=== PATIENT | female | born 1955 | race American Indian/Alaskan Native ===

== ENCOUNTER 2019-02-04 15:31 | Inpatient (IN) | payer SELFPAY ==
[2019-02-04] MEDS ORDERED: NACL 0.9% 500 ML 500 ML IV ONE (16:00)
[2019-02-04 16:12] LABS: Hematocrit 36.6 % (30.3-42.9); Hemoglobin 12.8 gm/dl (10.1-14.3); Mean Corpuscular HGB Conc 35 % (30-34); Mean Corpuscular Volume 98 fl (79-97); Platelet Count 141 K/mm3 (140-440); Red Blood Count 3.74 M/mm3 (3.65-5.03); Red Cell Distribution Width 13.6 % (13.2-15.2)
[2019-02-04] MEDS ORDERED: TYLENOL PO ONE (16:12)
[2019-02-04] MEDS ORDERED: NACL 0.9% 1000 ML 1,000 ML IV ONE (16:16)
--- NOTE | 2019-02-04 16:20 | Emergency Department Report ---
ED Shortness of Breath HPI - General Chief Complaint: Dyspnea/Respdistress Stated Complaint: DIZZINESS Time Seen by Provider: 02/04/19 16:11 Source: patient, EMS Mode of arrival: Stretcher Limitations: No Limitations - History of Present Illness Initial Comments: Patient is 64 years old female with history of hypertension. Patient presented to the ER complaining of shortness of breath, cough productive with greenish sputum associated with fever and chills for the last 7 days. Patient found to have a temperature of 101.4 tachycardic at 125 and oxygen saturation of 93% on room air. Sepsis protocol initiated. Patient denied any chest pain, nausea or vomiting. Patient stated that she recently came from [place] for vacation. MD Complaint: shortness of breath, cough -: week(s) (1) - Related Data Allergies Allergy/AdvReac Type Severity Reaction Status Date / Time No Known Allergies Allergy Unverified 02/04/19 15:59 ED Review of Systems ROS: Stated complaint: DIZZINESS Other details as noted in HPI Comment: All other systems reviewed and negative Constitutional: chills, fever, weakness Respiratory: cough, shortness of breath Cardiovascular: palpitations Gastrointestinal: denies: abdominal pain, nausea, vomiting, diarrhea, constipation, hematemesis, melena, hematochezia Neurological: weakness ED Past Medical Hx - Past Medical History Previous Medical History?: Yes Hx Hypertension: Yes - Surgical History Past Surgical History?: No - Social History Smoking Status: Current Every Day Smoker Substance Use Type: Alcohol ED Physical Exam - General Limitations: No Limitations General appearance: alert, in distress (moderate respiratory distress) - Head Head exam: Present: atraumatic, normocephalic, normal inspection - Eye Eye exam: Present: normal appearance - ENT ENT exam: Present: mucous membranes dry - Neck Neck exam: Present: normal inspection, full ROM. Absent: tenderness, meningismus, lymphadenopathy, thyromegaly - Respiratory Respiratory exam: Present: respiratory distress, rales. Absent: wheezes, rhonchi, stridor, chest wall tenderness, accessory muscle use, decreased breath sounds, prolonged expiratory - Cardiovascular Cardiovascular Exam: Present: tachycardia - GI/Abdominal GI/Abdominal exam: Present: soft, normal bowel sounds. Absent: distended, tenderness, guarding, rebound, rigid, organomegaly, mass, bruit, pulsatile mass, hernia - Extremities Exam Extremities exam: Present: normal inspection, full ROM, normal capillary refill - Back Exam Back exam: Present: normal inspection, full ROM. Absent: tenderness, CVA tenderness (R), CVA tenderness (L), muscle spasm, paraspinal tenderness, vertebral tenderness - Neurological Exam Neurological exam: Present: alert, oriented X3, CN II-XII intact, normal gait, reflexes normal - Skin Skin exam: Present: warm, intact, normal color ED Course Vital Signs 02/04/19 02/04/19 15:54 15:57 Temperature 101.4 F H Pulse Rate 125 H Respiratory 35 H 35 H Rate Blood Pressure 147/84 Blood Pressure 147/84 [Left] O2 Sat by Pulse 93 93 Oximetry ED Medical Decision Making - Lab Data Result diagrams: 02/04/19 16:03 02/04/19 16:03 - EKG Data -: EKG Interpreted by Me EKG shows normal: sinus rhythm Rate: tachycardia - EKG Data Interpretation: no acute changes - Radiology Data Radiology results: image reviewed interpreted by me: Chest x-ray showed right lower lobe infiltrate. - Medical Decision Making Patient is 64 years old female with history of hypertension. Patient presented to the ER complaining of shortness of breath, cough productive with greenish sputum associated with fever and chills for the last 7 days. Patient found to have a temperature of 101.4 tachycardic at 125 and oxygen saturation of 93% on room air. Sepsis protocol initiated. Patient denied any chest pain, nausea or vomiting. Patient stated that she recently came from [place] for vacation. Patient found to have a right lower lobe infiltrate which is most likely the cause for her sepsis. Lactic acid is 5.9. Patient received 2 L of normal saline. Patient's sodium is 122. Potassium is 2.1 patient received potassium and chloride. Patient received Zosyn for pneumonia. I discussed the patient is Dr. Gannon, he'll return the patient to medical service. Critical Care Time: Yes Critical care time in (mins) excluding proc time.: 30 Critical care attestation.: If time is entered above; I have spent that time in minutes in the direct care of this critically ill patient, excluding procedure time. ED Disposition Clinical Impression: Sepsis, Pneumonia, Acute hyponatremia, Acute hypokalemia Disposition: OP ADMIT IP TO THIS HOSP Is pt being admited?: Yes Condition: Stable Instructions: Bacterial Pneumonia (ED) Referrals: NEGRO MEZA MD [Primary Care Provider] - 3-5 Days
[2019-02-04 16:23] LABS: INR 1.18 (0.87-1.13)
[2019-02-04 16:46] LABS: Albumin 3.6 g/dL (3.9-5); Basophils % (Manual) 0 % (0.0-1.8); Calcium 8.9 mg/dL (8.4-10.2); Eosinophils % (Manual) 0 % (0.0-4.3); Total Cells Counted 100
[2019-02-04 16:47] LABS: Anisocytosis Few; Platelet Estimate Consistent w Auto
[2019-02-04] MEDS ORDERED: SODIUM CHLORIDE FLUSH SYRINGE 10 ML IV PRN (17:10)
[2019-02-04] MEDS ORDERED: PERCOCET 5/325 PO PRN (17:10)
[2019-02-04] MEDS ORDERED: PROVENTIL IH PRN (17:10)
[2019-02-04] MEDS ORDERED: ZOFRAN IV PRN (17:10)
--- NOTE | 2019-02-04 17:10 | History and Physical Report ---
History of Present Illness Chief complaint: I just feel tired, and i cant breathe History of present illness: 64 YO Female with HTN, Obesity, Nicotine Dependence presents to ED for evaluation. Pt states that she has experienced shortness of breath over the past 1 week, with persistent symptoms over the same time frame. Pt reports fever to 101.4, shaking chills, and productive cough with greenish sputum. EMS notified, and upon arrival the patient was found to be in distress. Pt transported to [facility]. Pt seen and evaluated in ED and found to have RLL Pneumonia complicated by SIRS, Acute renal Failure, Volume Depletion, Hyponatremia and Hypokalemia. Pt denies CP, Palpitations, NVD, Trauma, Syncope, Vertigo, Skin rash, BRBPR, Unilateral leg swelling, Calf pain, or recent ill contacts. Pt admitted to medical floor and initiated on Pneumonia protocol. Pt treated with supplemental oxygen, nebulizer therapy, and IV antibiotic therapy with improvement in symptoms. No prior admission for review. No medication listed for reconciliation at time of admission. Past History Past Medical History: hypertension, other (Obesity) Past Surgical History: No surgical history, Other (reviewed) Social history: single, smoking Family history: no significant family history (reviewed) Medications and Allergies Allergies Allergy/AdvReac Type Severity Reaction Status Date / Time No Known Allergies Allergy Unverified 02/04/19 15:59 Active Meds: Active Medications Piperacillin Sod/Tazobactam Sod (Zosyn/Ns 3.375gm/50ml) 3.375 gm in 50 mls @ 100 mls/hr IV ONCE ONE Stop: 02/04/19 17:44 Last Admin: 02/04/19 17:05 Dose: 100 mls/hr Documented by: Sodium Chloride (Nacl 0.9% 1000 Ml) 1,000 mls @ 999 mls/hr IV BOLUS ONE Stop: 02/04/19 17:16 Potassium Chloride (Kcl 10meq/100ml) 10 meq in 100 mls @ 100 mls/hr IV Q1H TERRY Stop: 02/04/19 19:59 Review of Systems Constitutional: fever, chills, weakness, malaise, no weight loss, no weight gain Ears, nose, mouth and throat: no ear pain, no ear discharge, no tinnitis, no decreased hearing, no nose pain, no nasal congestion Breasts: no change in shape, no swelling, no mass Cardiovascular: no chest pain, no orthopnea, no palpitations, no rapid/irregular heart beat, no edema Respiratory: cough, cough with sputum, shortness of breath Gastrointestinal: no nausea, no vomiting, no diarrhea, no constipation Genitourinary Female: no pelvic pain, no flank pain, no menorrhagia, no dysuria, no urinary frequency Rectal: no pain, no incontinence, no bleeding Musculoskeletal: no neck stiffness, no neck pain, no shooting arm pain, no arm numbness/tingling, no low back pain Integumentary: no rash, no pruritis, no redness, no sores, no wounds Neurological: no paralysis, no weakness, no parathesias, no numbness, no tingling, no seizures Psychiatric: no anxiety, no memory loss, no change in sleep habits, no sleep disturbances, no insomnia, no hypersomnia, no change in appetite, no change in libido Endocrine: no cold intolerance, no heat intolerance, no polyphagia, no excessive thirst, no polyuria, no nocturia, no excessive sweating Hematologic/Lymphatic: no easy bruising, no easy bleeding, no lymphadenopathy, no lymphedema Allergic/Immunologic: no urticaria, no persistent infections, no anaphylaxis, no angioedema Exam - Constitutional Vitals: Temp Pulse Resp BP Pulse Ox 101.4 F H 125 H 35 H 147/84 93 02/04/19 15:54 02/04/19 15:54 02/04/19 15:57 02/04/19 15:54 02/04/19 15:57 General appearance: Present: mild distress - EENT Eyes: Present: PERRL ENT: hearing intact, clear oral mucosa - Neck Neck: Present: supple, normal ROM - Respiratory Respiratory effort: normal Respiratory: right: diminished, rhonchi - Cardiovascular Heart Sounds: Present: S1 & S2. Absent: rub, click - Extremities Extremities: pulses symmetrical, No edema Peripheral Pulses: within normal limits - Abdominal General gastrointestinal: Present: soft, non-tender, non-distended, normal bowel sounds Female genitourinary: Present: normal - Integumentary Integumentary: Present: clear, warm, dry - Musculoskeletal Musculoskeletal: gait normal, strength equal bilaterally - Psychiatric Psychiatric: appropriate mood/affect, intact judgment & insight - Neurologic Neurologic: CNII-XII intact, moves all extremities Results - Labs CBC & Chem 7: 02/04/19 16:03 02/04/19 16:03 Labs: Abnormal lab results 02/04/19 02/04/19 02/04/19 Range/Units 16:03 16:03 16:03 WBC 12.5 H (4.5-11.0) K/mm3 MCV 98 H (79-97) fl MCH 34 H (28-32) pg MCHC 35 H (30-34) % Seg Neuts % (Manual) 92.0 H (40.0-70.0) % Lymphocytes % (Manual) 4.0 L (13.4-35.0) % Seg Neutrophils # Man 11.5 H (1.8-7.7) K/mm3 Lymphocytes # (Manual) 0.5 L (1.2-5.4) K/mm3 PT 15.8 H (12.2-14.9) Sec. INR 1.18 H (0.87-1.13) VBG pH (7.320-7.420) Sodium 122 L (137-145) mmol/L Potassium 2.9 L* (3.6-5.0) mmol/L Chloride 85.4 L (98-107) mmol/L Carbon Dioxide 11 L (22-30) mmol/L Creatinine 1.4 H (0.7-1.2) mg/dL Glucose 182 H (65-100) mg/dL Lactic Acid (0.7-2.0) mmol/L AST 72 H (5-40) units/L Albumin 3.6 L (3.9-5) g/dL 02/04/19 02/04/19 Range/Units 16:03 16:03 WBC (4.5-11.0) K/mm3 MCV (79-97) fl MCH (28-32) pg MCHC (30-34) % Seg Neuts % (Manual) (40.0-70.0) % Lymphocytes % (Manual) (13.4-35.0) % Seg Neutrophils # Man (1.8-7.7) K/mm3 Lymphocytes # (Manual) (1.2-5.4) K/mm3 PT (12.2-14.9) Sec. INR (0.87-1.13) VBG pH 7.442 H (7.320-7.420) Sodium (137-145) mmol/L Potassium (3.6-5.0) mmol/L Chloride (98-107) mmol/L Carbon Dioxide (22-30) mmol/L Creatinine (0.7-1.2) mg/dL Glucose (65-100) mg/dL Lactic Acid 5.90 H* (0.7-2.0) mmol/L AST (5-40) units/L Albumin (3.9-5) g/dL Assessment and Plan - Patient Problems (1) Pneumonia Current Visit: Yes Status: Acute Qualifiers: Laterality: right Lung location: lower lobe of lung Plan to address problem: Pneumonia Protocol: IV antibiotic therapy, supplemental oxygen, nebulizer, Chest x ray, pulse oximetry, CBC, CMP, blood cultures, Influenza A&B (2) SIRS (systemic inflammatory response syndrome) Current Visit: Yes Status: Acute Plan to address problem: IV antibiotic therapy, CBC, CMP, chest x ray, urinalysis, (3) Acidosis Current Visit: Yes Status: Acute Plan to address problem: Treat pneumonia, IVF resuscitation therapy, repeat bmp. (4) ARF (acute renal failure) with tubular necrosis Current Visit: Yes Status: Acute Plan to address problem: Monitor uop q shift, bpm, IVF resuscitation therapy, monitor serum creatnine, urinalysis, (5) Hyponatremia syndrome Current Visit: Yes Status: Acute Plan to address problem: IVF resuscitation therapy, repeat bmp, (6) Hypokalemia Current Visit: Yes Status: Acute Plan to address problem: repleted in ED, repeat bmp, (7) Left ankle pain Current Visit: Yes Status: Acute Qualifiers: Chronicity: chronic Qualified Code(s): M25.572 - Pain in left ankle and joints of left foot; G89.29 - Other chronic pain Plan to address problem: Left ankle x ray (8) DVT prophylaxis Current Visit: Yes Status: Acute Plan to address problem: SCD to BLE while in bed, Prophylactic heparin
[2019-02-04] MEDS ORDERED: D50W (25GM) Syringe IV PRN (17:12)
[2019-02-04] MEDS ORDERED: ZOSYN/NS 3.375GM/50ML 3.375 GM/50 ML BAG IV ONE (17:15)
[2019-02-04] MEDS ORDERED: NACL 0.9% 250ML 250 ML IV ONE (17:16)
--- NOTE | 2019-02-04 17:22 | XRay Report ---
PROCEDURE: XR CHEST 1V AP TECHNIQUE: Chest radiograph single view. HISTORY: possible Sepsis COMPARISONS: None . FINDINGS: Heart: Heart size normal. Mediastinum/Vessels: Trachea midline. Mild atherosclerotic calcification in aorta. Lungs/Pleural space: Minimal stringy airspace disease right base. No pneumothorax. No sizable effusi on. Bony thorax: No acute osseous abnormality. Life support devices: None. IMPRESSION: Minimal stringy airspace disease right base. No comparison for baseline. Differential in cludes atelectasis, scarring, pneumonia.. This document is electronically signed by Williams Boyce MD., Feb 04 2019 05:20:42 PM ET
[2019-02-04] MEDS: ZITHROMAX 500 MG in NACL 0.9% 250ML 250 ML IV SCH (18:30)
[2019-02-04] MEDS ORDERED: HYDROMET PO ONE (18:32)
[2019-02-04] MEDS ORDERED: KCL 10MEQ/100ML 10 MEQ/100 ML BAG IV ONE (19:28)
--- NOTE | 2019-02-04 19:29 | XRay Report ---
PROCEDURE: XR ANKLE 2V LT HISTORY: pain FINDINGS: AP and lateral views of the left ankle were acquired and demonstrate a nondisplaced fractur e of the inferior tip of the lateral malleolus. There is lateral soft tissue swelling. The medial mal leolus appears intact. IMPRESSION: Fracture of the inferior tip of the left lateral malleolus This document is electronically signed by Dayo Hollingsworth MD., Feb 04 2019 07:27:56 PM ET
[2019-02-04] MEDS: KCL 10MEQ/100ML 10 MEQ/100 ML BAG IV SCH (19:33)
[2019-02-04] MEDS: ROCEPHIN/NS 2 GM/100 ML 2 GM/100 ML BAG IV SCH (19:51)
[2019-02-04 22:14] LABS: Bacteria,Urine 1+ /HPF (Negative); Bilirubin,Urine NEG (Negative); Blood,Urine LG (Negative); Color,Urine Yellow (Yellow); Mucus,Urine FEW /HPF; Urobilinogen,Urine < 2.0 mg/dL (<2.0)
[2019-02-04] MEDS ORDERED: KCL 10MEQ/100ML 10 MEQ/100 ML BAG IV SCH (23:00)
[2019-02-04] MEDS: HumuLIN R SUB-Q SCH (23:40)
[2019-02-04] MEDS: HEPARIN SUB-Q SCH (23:43)
[2019-02-04] MEDS: SODIUM CHLORIDE FLUSH SYRINGE 10 ML IV SCH (23:44)
[2019-02-05] MEDS: KCL 10MEQ/100ML 10 MEQ/100 ML BAG IV SCH (00:03)
[2019-02-05] MEDS: TYLENOL PO PRN ×3 (05:31→21:48)
[2019-02-05] MEDS: HYDROMET PO PRN (05:33)
[2019-02-05] MEDS: HumuLIN R SUB-Q SCH ×4 (07:30→21:50)
--- NOTE | 2019-02-05 09:10 | History and Physical Report ---
History of Present Illness Date of examination: 02/05/19 Date of admission: 02/04/19 17:10 Past History Past Medical History: hypertension, other (Obesity) Past Surgical History: No surgical history, Other (reviewed) Social history: single, smoking Family history: no significant family history (reviewed) Medications and Allergies Allergies Allergy/AdvReac Type Severity Reaction Status Date / Time No Known Allergies Allergy Unverified 02/04/19 15:59 Home Medications Medication Instructions Recorded Confirmed Last Taken Type No Known Home Medications [No 02/05/19 02/05/19 Unknown History Reported Home Medications] Active Meds: Active Medications Acetaminophen (Tylenol) 650 mg PO Q4H PRN PRN Reason: Pain MILD(1-3)/Fever >100.5/CHEW Last Admin: 02/05/19 05:31 Dose: 650 mg Documented by: Albuterol (Proventil) 2.5 mg IH Q4HRT PRN PRN Reason: Shortness Of Breath Dextrose (D50w (25gm) Syringe) 50 ml IV PRN PRN PRN Reason: Hypoglycemia Heparin Sodium (Porcine) (Heparin) 5,000 unit SUB-Q Q12HR TERRY Last Admin: 02/04/19 23:43 Dose: 5,000 unit Documented by: Hydrocodone Bit/Homatropine Methylb (Hydromet) 10 ml PO Q6H PRN PRN Reason: Cough Last Admin: 02/05/19 05:33 Dose: 10 ml Documented by: Ceftriaxone Sodium (Rocephin/Ns 2 Gm/100 Ml) 2 gm in 100 mls @ 200 mls/hr IV Q24H TERRY; Protocol Last Admin: 02/04/19 19:51 Dose: 200 mls/hr Documented by: Azithromycin 500 mg/ Sodium (Chloride) 250 mls @ 250 mls/hr IV Q24H TERRY; Protocol Last Admin: 02/04/19 18:30 Dose: 250 mls/hr Documented by: Insulin Human Regular (Humulin R) 0 units SUB-Q ACHS TERRY; Protocol Last Admin: 02/05/19 07:30 Dose: Not Given Documented by: Ondansetron HCl (Zofran) 4 mg IV Q8H PRN PRN Reason: Nausea And Vomiting Oxycodone/Acetaminophen (Percocet 5/325) 1 tab PO Q6H PRN PRN Reason: Pain, Moderate (4-6) Sodium Chloride (Sodium Chloride Flush Syringe 10 Ml) 10 ml IV BID TERRY Last Admin: 02/04/19 23:44 Dose: 10 ml Documented by: Sodium Chloride (Sodium Chloride Flush Syringe 10 Ml) 10 ml IV PRN PRN PRN Reason: LINE FLUSH Exam - Constitutional Vitals: Temp Pulse Resp BP Pulse Ox 103.1 F H 102 H 20 168/80 93 02/05/19 05:26 02/04/19 23:30 02/05/19 05:26 02/05/19 05:26 02/04/19 23:30 Results - Labs CBC & Chem 7: 02/04/19 16:03 02/04/19 16:03 Labs: Laboratory Last Values WBC 12.5 K/mm3 (4.5-11.0) H 02/04/19 16:03 RBC 3.74 M/mm3 (3.65-5.03) 02/04/19 16:03 Hgb 12.8 gm/dl (10.1-14.3) 02/04/19 16:03 Hct 36.6 % (30.3-42.9) 02/04/19 16:03 MCV 98 fl (79-97) H 02/04/19 16:03 MCH 34 pg (28-32) H 02/04/19 16:03 MCHC 35 % (30-34) H 02/04/19 16:03 RDW 13.6 % (13.2-15.2) 02/04/19 16:03 Plt Count 141 K/mm3 (140-440) 02/04/19 16:03 Add Manual Diff Complete 02/04/19 16:03 Total Counted 100 02/04/19 16:03 Seg Neuts % (Manual) 92.0 % (40.0-70.0) H 02/04/19 16:03 0 % 02/04/19 16:03 4.0 % (13.4-35.0) L 02/04/19 16:03 Reactive Lymphs % (Man) 0 % 02/04/19 16:03 4.0 % (0.0-7.3) 02/04/19 16:03 0 % (0.0-4.3) 02/04/19 16:03 0 % (0.0-1.8) 02/04/19 16:03 0 % 02/04/19 16:03 0 % 02/04/19 16:03 0 % 02/04/19 16:03 0 % 02/04/19 16:03 Nucleated RBC % Not Reportable 02/04/19 16:03 Seg Neutrophils # Man 11.5 K/mm3 (1.8-7.7) H 02/04/19 16:03 Band Neutrophils # 0.0 K/mm3 02/04/19 16:03 0.5 K/mm3 (1.2-5.4) L 02/04/19 16:03 Abs React Lymphs (Man) 0.0 K/mm3 02/04/19 16:03 0.5 K/mm3 (0.0-0.8) 02/04/19 16:03 0.0 K/mm3 (0.0-0.4) 02/04/19 16:03 0.0 K/mm3 (0.0-0.1) 02/04/19 16:03 0.0 K/mm3 02/04/19 16:03 0.0 K/mm3 02/04/19 16:03 0.0 K/mm3 02/04/19 16:03 Blast Cells # 0.0 K/mm3 02/04/19 16:03 WBC Morphology Not Reportable 02/04/19 16:03 Hypersegmented Neuts Not Reportable 02/04/19 16:03 Hyposegmented Neuts Not Reportable 02/04/19 16:03 Hypogranular Neuts Not Reportable 02/04/19 16:03 Not Reportable 02/04/19 16:03 Not Reportable 02/04/19 16:03 Not Reportable 02/04/19 16:03 Not Reportable 02/04/19 16:03 Not Reportable 02/04/19 16:03 Not Reportable 02/04/19 16:03 Consistent w auto 02/04/19 16:03 Not Reportable 02/04/19 16:03 Plt Clumps, EDTA Not Reportable 02/04/19 16:03 Not Reportable 02/04/19 16:03 Not Reportable 02/04/19 16:03 Not Reportable 02/04/19 16:03 Plt Morphology Comment Not Reportable 02/04/19 16:03 RBC Morphology Not Reportable 02/04/19 16:03 Dimorphic RBCs Not Reportable 02/04/19 16:03 Not Reportable 02/04/19 16:03 Not Reportable 02/04/19 16:03 Not Reportable 02/04/19 16:03 Few 02/04/19 16:03 Not Reportable 02/04/19 16:03 Not Reportable 02/04/19 16:03 Not Reportable 02/04/19 16:03 Not Reportable 02/04/19 16:03 Not Reportable 02/04/19 16:03 Not Reportable 02/04/19 16:03 Not Reportable 02/04/19 16:03 Not Reportable 02/04/19 16:03 Not Reportable 02/04/19 16:03 Not Reportable 02/04/19 16:03 Not Reportable 02/04/19 16:03 Not Reportable 02/04/19 16:03 Not Reportable 02/04/19 16:03 Not Reportable 02/04/19 16:03 Not Reportable 02/04/19 16:03 Acanthocytes (Spur) Not Reportable 02/04/19 16:03 Rouleaux Not Reportable 02/04/19 16:03 Not Reportable 02/04/19 16:03 Not Reportable 02/04/19 16:03 Not Reportable 02/04/19 16:03 Not Reportable 02/04/19 16:03 Hem Pathologist Commnt No 02/04/19 16:03 PT 15.8 Sec. (12.2-14.9) H 02/04/19 16:03 INR 1.18 (0.87-1.13) H 02/04/19 16:03 VBG pH 7.442 (7.320-7.420) H 02/04/19 16:03 Sodium 122 mmol/L (137-145) L 02/04/19 16:03 Potassium 2.9 mmol/L (3.6-5.0) L* 02/04/19 16:03 Chloride 85.4 mmol/L (98-107) L 02/04/19 16:03 Carbon Dioxide 11 mmol/L (22-30) L 02/04/19 16:03 29 mmol/L 02/04/19 16:03 BUN 11 mg/dL (7-17) 02/04/19 16:03 1.4 mg/dL (0.7-1.2) H 02/04/19 16:03 Estimated GFR 46 ml/min 02/04/19 16:03 8 % 02/04/19 16:03 Glucose 182 mg/dL (65-100) H 02/04/19 16:03 POC Glucose 108 (70-105) H 02/05/19 07:46 Lactic Acid 5.90 mmol/L (0.7-2.0) H* 02/04/19 16:03 Calcium 8.9 mg/dL (8.4-10.2) 02/04/19 16:03 1.10 mg/dL (0.1-1.2) 02/04/19 16:03 AST 72 units/L (5-40) H 02/04/19 16:03 ALT 28 units/L (7-56) 02/04/19 16:03 60 units/L (35-129) 02/04/19 16:03 7.8 g/dL (6.3-8.2) 02/04/19 16:03 3.6 g/dL (3.9-5) L 02/04/19 16:03 0.9 % 02/04/19 16:03 Yellow (Yellow) 02/04/19 21:00 Slightly-cloudy (Clear) 02/04/19 21:00 5.0 (5.0-7.0) 02/04/19 21:00 Ur Specific [place] 1.010 (1.003-1.030) 02/04/19 21:00 100 mg/dl mg/dL (Negative) 02/04/19 21:00 Neg mg/dL (Negative) 02/04/19 21:00 Neg mg/dL (Negative) 02/04/19 21:00 Lg (Negative) 02/04/19 21:00 Neg (Negative) 02/04/19 21:00 Neg (Negative) 02/04/19 21:00 < 2.0 mg/dL (<2.0) 02/04/19 21:00 Ur Leukocyte Esterase Neg (Negative) 02/04/19 21:00 4.0 /HPF (0.0-6.0) 02/04/19 21:00 3.0 /HPF (0.0-6.0) 02/04/19 21:00 U Epithel Cells (Auto) 1.0 /HPF (0-13.0) 02/04/19 21:00 1+ /HPF (Negative) 02/04/19 21:00 Few /HPF 02/04/19 21:00
[2019-02-05 09:19] LABS: Hematocrit 33.2 % (30.3-42.9); Hemoglobin 11.6 gm/dl (10.1-14.3); Mean Corpuscular HGB Conc 35 % (30-34); Mean Corpuscular Volume 96 fl (79-97); Platelet Count 133 K/mm3 (140-440); Red Blood Count 3.47 M/mm3 (3.65-5.03); Red Cell Distribution Width 13.1 % (13.2-15.2)
[2019-02-05] MEDS ORDERED: K-DUR PO NR (09:30)
[2019-02-05 09:43] LABS: Alanine Aminotransferase 33 units/L (7-56); Albumin 2.7 g/dL (3.9-5); BUN/Creatinine Ratio 14; Blood Urea Nitrogen 11 mg/dL (7-17); Calcium 7.7 mg/dL (8.4-10.2); Hemolysis Index 36
[2019-02-05] MEDS: HEPARIN SUB-Q SCH ×2 (09:53→21:51)
[2019-02-05] MEDS: SODIUM CHLORIDE FLUSH SYRINGE 10 ML IV SCH ×2 (09:53→21:48)
[2019-02-05] MEDS ORDERED: K-DUR PO ONE (10:00)
[2019-02-05 11:36] LABS: Band Neutrophils # (Manual) 0.3 K/mm3; Basophils % (Manual) 0 % (0.0-1.8); Eosinophils % (Manual) 0 % (0.0-4.3); Total Cells Counted 100
[2019-02-05 11:37] LABS: Platelet Estimate Consistent w Auto; RBC Morphology Normal
[2019-02-05] MEDS: ZITHROMAX 500 MG in NACL 0.9% 250ML 250 ML IV SCH (17:52)
[2019-02-05] MEDS: ROCEPHIN/NS 2 GM/100 ML 2 GM/100 ML BAG IV SCH (17:52)
[2019-02-06] MEDS: HYDROMET PO PRN (03:52)
--- NOTE | 2019-02-06 06:59 | Progress Note ---
Assessment and Plan (1) Pneumonia Current Visit: Yes Status: Acute Qualifiers: Laterality: right Lung location: lower lobe of lung Plan to address problem: Pneumonia Protocol: IV antibiotic therapy, supplemental oxygen, nebulizer, Chest x ray, pulse oximetry, CBC, CMP, blood cultures, Influenza A&B (2) SIRS (systemic inflammatory response syndrome) Current Visit: Yes Status: Acute Plan to address problem: IV antibiotic therapy, CBC, CMP, chest x ray, urinalysis, (3) Acidosis Current Visit: Yes Status: Acute Plan to address problem: Treat pneumonia, IVF resuscitation therapy, repeat bmp. (4) ARF (acute renal failure) with tubular necrosis Current Visit: Yes Status: Acute Plan to address problem: Monitor uop q shift, bpm, IVF resuscitation therapy, monitor serum creatnine, urinalysis, (5) Hyponatremia syndrome Current Visit: Yes Status: Acute Plan to address problem: IVF resuscitation therapy, repeat bmp, (6) Hypokalemia Current Visit: Yes Status: Acute Plan to address problem: Supplemented (7) Left ankle pain Current Visit: Yes Status: Acute Qualifiers: Chronicity: chronic Qualified Code(s): M25.572 - Pain in left ankle and joints of left foot; G89.29 - Other chronic pain Plan to address problem: Left ankle x ray (8) DVT prophylaxis Current Visit: Yes Status: Acute Plan to address problem: SCD to BLE while in bed, Prophylactic heparin Subjective Date of service: 02/05/19 Principal diagnosis: Pneumonia Interval history: Doing better today 64 YO Female with HTN, Obesity, Nicotine Dependence presents to ED for evaluation. Pt states that she has experienced shortness of breath over the past 1 week, with persistent symptoms over the same time frame. Pt reports fever to 101.4, shaking chills, and productive cough with greenish sputum. EMS notified, and upon arrival the patient was found to be in distress. Pt transported to [facility]. Pt seen and evaluated in ED and found to have RLL Pneumonia complicated by SIRS, Acute renal Failure, Volume Depletion, Hyponatremia and Hypokalemia. Pt denies CP, Palpitations, NVD, Trauma, Syncope, Vertigo, Skin rash, BRBPR, Unilateral leg swelling, Calf pain, or recent ill contacts. Pt admitted to medical floor and initiated on Pneumonia protocol. Pt treated with supplemental oxygen, nebulizer therapy, and IV antibiotic therapy with improvement in symptoms. No prior admission for review. No medication listed for reconciliation at time of admission. Objective - Constitutional Vitals: Vital Signs - 12hr 02/05/19 02/05/19 02/06/19 21:48 22:10 04:08 Temperature 102.8 F H Pulse Rate 101 H Pulse Rate [ 96 H Anterior Bilateral Throughout] Respiratory 48 H Rate Respiratory 20 Rate [Anterior Bilateral Throughout] Blood Pressure 166/85 O2 Sat by Pulse 98 98 Oximetry 02/06/19 05:01 Temperature 100.8 F H Pulse Rate 90 Pulse Rate [ Anterior Bilateral Throughout] Respiratory 28 H Rate Respiratory Rate [Anterior Bilateral Throughout] Blood Pressure 134/75 O2 Sat by Pulse 97 Oximetry General appearance: Present: no acute distress, well-nourished - EENT Eyes: PERRL, EOM intact ENT: hearing intact, clear oral mucosa Ears: bilateral: normal - Neck Neck: supple, normal ROM - Respiratory Respiratory effort: normal Respiratory: bilateral: CTA, rales - Breasts Breasts: normal - Cardiovascular Heart rate: 78 Rhythm: regular Heart Sounds: Present: S1 & S2. Absent: gallop, rub Extremities: no ischemia, pulses intact, No edema, normal color, Full ROM - Gastrointestinal General gastrointestinal: Present: soft, non-tender, non-distended, normal bowel sounds - Genitourinary Female genitourinary: normal - Integumentary Integumentary: clear, warm, dry - Musculoskeletal Musculoskeletal: 1, strength equal bilaterally - Neurologic Neurologic: moves all extremities - Psychiatric Psychiatric: memory intact, appropriate mood/affect, intact judgment & insight - Labs CBC & Chem 7: 02/05/19 08:33 02/05/19 08:33 Labs: Abnormal lab results 02/05/19 02/05/19 02/05/19 Range/Units 07:46 08:33 08:33 RBC 3.47 L (3.65-5.03) M/mm3 MCH 33 H (28-32) pg MCHC 35 H (30-34) % RDW 13.1 L (13.2-15.2) % Plt Count 133 L (140-440) K/mm3 Seg Neuts % (Manual) 84.0 H (40.0-70.0) % Lymphocytes % (Manual) 4.0 L (13.4-35.0) % Monocytes % (Manual) 9.0 H (0.0-7.3) % Seg Neutrophils # Man 8.6 H (1.8-7.7) K/mm3 Lymphocytes # (Manual) 0.4 L (1.2-5.4) K/mm3 Monocytes # (Manual) 0.9 H (0.0-0.8) K/mm3 Sodium 125 L (137-145) mmol/L Potassium 2.8 L* (3.6-5.0) mmol/L Chloride 92.7 L (98-107) mmol/L Carbon Dioxide 16 L (22-30) mmol/L Glucose 109 H (65-100) mg/dL POC Glucose 108 H (70-105) Calcium 7.7 L (8.4-10.2) mg/dL AST 103 H (5-40) units/L Albumin 2.7 L (3.9-5) g/dL 02/05/19 02/05/19 Range/Units 11:51 21:42 RBC (3.65-5.03) M/mm3 MCH (28-32) pg MCHC (30-34) % RDW (13.2-15.2) % Plt Count (140-440) K/mm3 Seg Neuts % (Manual) (40.0-70.0) % Lymphocytes % (Manual) (13.4-35.0) % Monocytes % (Manual) (0.0-7.3) % Seg Neutrophils # Man (1.8-7.7) K/mm3 Lymphocytes # (Manual) (1.2-5.4) K/mm3 Monocytes # (Manual) (0.0-0.8) K/mm3 Sodium (137-145) mmol/L Potassium (3.6-5.0) mmol/L Chloride (98-107) mmol/L Carbon Dioxide (22-30) mmol/L Glucose (65-100) mg/dL POC Glucose 121 H 130 H (70-105) Calcium (8.4-10.2) mg/dL AST (5-40) units/L Albumin (3.9-5) g/dL
[2019-02-06] MEDS ORDERED: K-DUR PO ONE ×2 (07:03→09:30)
[2019-02-06] MEDS: TYLENOL PO PRN ×2 (07:48→12:58)
[2019-02-06 07:51] LABS: Basophils % (Auto) 0.1 % (0.0-1.8); Hematocrit 32.4 % (30.3-42.9); Hemoglobin 11.1 gm/dl (10.1-14.3); Lymphocytes # (Auto) 0.6 K/mm3 (1.2-5.4); Lymphocytes % (Auto) 6.4 % (13.4-35.0); Mean Corpuscular HGB Conc 34 % (30-34); Mean Corpuscular Volume 97 fl (79-97); Monocytes # (Auto) 0.9 K/mm3 (0.0-0.8); Platelet Count 155 K/mm3 (140-440); Red Blood Count 3.34 M/mm3 (3.65-5.03); Red Cell Distribution Width 13.7 % (13.2-15.2)
[2019-02-06 08:10] LABS: BUN/Creatinine Ratio 13; Blood Urea Nitrogen 8 mg/dL (7-17); Calcium 7.7 mg/dL (8.4-10.2); Hemolysis Index 3
[2019-02-06] MEDS: HumuLIN R SUB-Q SCH ×4 (08:34→23:15)
[2019-02-06] MEDS: HEPARIN SUB-Q SCH ×2 (10:27→22:48)
[2019-02-06] MEDS: SODIUM CHLORIDE FLUSH SYRINGE 10 ML IV SCH ×2 (10:28→21:31)
--- NOTE | 2019-02-06 11:45 | Consultation ---
History of Present Illness - Reason for Consult Consult date: 02/06/19 pneumonia, persistent fever Requesting physician: SHELDON NICHOLS - History of Present Illness 64 y/o female with history of Nicotine Dependence, hypertension and GERD admitted on due to a-week history of worsening shortness of breath, cough, generalized weakness, dizziness, nausea and poor appetite. Patient went to [place] stayed at a [employer] hotel with 4 other family members to celebrate her birthday a week before symptoms started. Denies sick contacts. She also reports persistent right sided pleuritic pain worsening with cough and deep breath. In the ED, temp 101.4, HR 125, R 35, BP 147/84, O2 sat 93. WBC 12.5. Hg 12.8. Plat 141. Sodium 122. Creat 1.4. Lactate 5.9. AST 72. UA neg. Blood cultures 02/04/2019 no growth so far. Urine culture 02/04/2019 no growth so far. CXR showed minimal stringy airspace disease right base. Review of Systems: General: + fever, + chills, +malaise, +dizziness Cutaneous: no rash, pruritus Head: no headaches or injury Eyes: no changes in vision, eye pain, double vision Ears: no ear pain, ear discharge, ringing or hearing loss Nose: no nose bleeding, stuffiness Mouth & throat: no bleeding gums, no horseness, no dental problems, or swollen glands Neck: no pain, node enlargement/lumps, tyroid enlargement or tenderness Respiratory: +cough, +SOB, wheezing, sputum, hemoptysis, pleuritic chest pain Cardiovascular: no chest pain, leg edema, cyanosis, [place], orthopnea Musculoskeletal: no edema, tenderness and erythema Gastrointestinal: +nausea, + reflux, no vomiting, no hematemesis, diarrhea, constipation, melena, bright red blood in stools, fecal incontinence, jaundice Genitourinary/Reproductive: no frequent urination, dysuria, hematuria, incontinence Neurogical: +headaches, no seizures, no headaches, no weakness, no paresthesias, no loss of speech or vision; no memory loss, no vertigo, no tremors, no numbness Psychiatric: stable mood; no excessive anxiety, sadness or moodiness Past History Past Medical History: hypertension, other (Obesity) Past Surgical History: No surgical history, Other (reviewed) Social history: single, smoking Family history: no significant family history (reviewed) Medications and Allergies Allergies Allergy/AdvReac Type Severity Reaction Status Date / Time acetaminophen [From Percocet] Allergy Rash Verified 02/05/19 13:43 oxycodone [From Percocet] Allergy Rash Verified 02/05/19 13:43 Home Medications Medication Instructions Recorded Confirmed Last Taken Type No Known Home Medications [No 02/05/19 02/05/19 Unknown History Reported Home Medications] Active Meds: Active Medications Acetaminophen (Tylenol) 650 mg PO Q4H PRN PRN Reason: Pain MILD(1-3)/Fever >100.5/CHEW Last Admin: 02/06/19 07:48 Dose: 650 mg Documented by: Albuterol (Proventil) 2.5 mg IH Q4HRT PRN PRN Reason: Shortness Of Breath Last Admin: 02/06/19 04:07 Dose: 2.5 mg Documented by: Dextrose (D50w (25gm) Syringe) 50 ml IV PRN PRN PRN Reason: Hypoglycemia Heparin Sodium (Porcine) (Heparin) 5,000 unit SUB-Q Q12HR [facility]Y Last Admin: 02/06/19 10:27 Dose: 5,000 unit Documented by: Hydrocodone Bit/Homatropine Methylb (Hydromet) 10 ml PO Q6H PRN PRN Reason: Cough Last Admin: 02/06/19 03:52 Dose: 10 ml Documented by: Ceftriaxone Sodium (Rocephin/Ns 2 Gm/100 Ml) 2 gm in 100 mls @ 200 mls/hr IV Q24H TERRY; Protocol Last Admin: 02/05/19 17:52 Dose: 200 mls/hr Documented by: Azithromycin 500 mg/ Sodium (Chloride) 250 mls @ 250 mls/hr IV Q24H [facility]Y; Protocol Last Admin: 02/05/19 17:52 Dose: 250 mls/hr Documented by: Potassium Chloride (Kcl 10meq/100ml) 10 meq in 100 mls @ 100 mls/hr IV Q1H T[facility]Y Stop: 02/06/19 14:59 Insulin Human Regular (Humulin R) 0 units SUB-Q ACHS [facility]Y; Protocol Last Admin: 02/06/19 08:34 Dose: Not Given Documented by: Ondansetron HCl (Zofran) 4 mg IV Q8H PRN PRN Reason: Nausea And Vomiting Sodium Chloride (Sodium Chloride Flush Syringe 10 Ml) 10 ml IV BID [facility] Last Admin: 02/06/19 10:28 Dose: 10 ml Documented by: Sodium Chloride (Sodium Chloride Flush Syringe 10 Ml) 10 ml IV PRN PRN PRN Reason: LINE FLUSH Sodium Chloride (Sodium Chloride) 2 gm PO TID [facility] Physical Examination - Physical Exam Narrative exam: General appearance: Alert in mild resp distress on NC O2 Eyes: anicteric sclerae, moist conjunctivae; no lid-lag; PERRLA HENT: Atraumatic; oropharynx clear with moist mucous membranes and no mucosal ulcerations/no oral thrush; normal hard and soft palate. Normal external ears. Neck: Trachea midline; supple, no thyromegaly or lymphadenopathy Lungs: RLL crackles CV: RRR Abdomen: Soft, non-tender; no masses or hepatosplenomegaly Extremities: no edema Skin: Normal temperature, turgor and texture; no rash, ulcers or subcutaneous nodules Psych: Appropriate affect, alert and oriented to person, place and time. Neuro: alert and oriented x 3. Moving all extermities - Constitutional Vitals: Vital Signs Temp Pulse Resp BP Pulse Ox 101.6 F H 90 28 H 134/75 97 02/06/19 07:44 02/06/19 05:01 02/06/19 05:01 02/06/19 05:01 02/06/19 05:01 Temperature -Last 24 Hours Temperature 101.6 F Temperature 100.8 F Temperature 102.8 F Temperature 101.7 F Temperature 102.4 F Results - Labs CBC & Chem 7: 02/06/19 07:16 02/06/19 07:16 Labs: Abnormal lab results 02/05/19 02/05/19 02/06/19 Range/Units 11:51 21:42 07:16 RBC 3.34 L (3.65-5.03) M/mm3 MCH 33 H (28-32) pg Lymph % (Auto) 6.4 L (13.4-35.0) % [place] % (Auto) 10.0 H (0.0-7.3) % Lymph # 0.6 L (1.2-5.4) K/mm3 [place] # 0.9 H (0.0-0.8) K/mm3 Seg Neutrophils % 83.5 H (40.0-70.0) % Sodium (137-145) mmol/L Potassium (3.6-5.0) mmol/L Chloride (98-107) mmol/L Carbon Dioxide (22-30) mmol/L Creatinine (0.7-1.2) mg/dL Glucose (65-100) mg/dL POC Glucose 121 H 130 H (70-105) Calcium (8.4-10.2) mg/dL 02/06/19 02/06/19 02/06/19 Range/Units 07:16 07:34 11:41 RBC (3.65-5.03) M/mm3 MCH (28-32) pg Lymph % (Auto) (13.4-35.0) % [place] % (Auto) (0.0-7.3) % Lymph # (1.2-5.4) K/mm3 [place] # (0.0-0.8) K/mm3 Seg Neutrophils % (40.0-70.0) % Sodium 122 L (137-145) mmol/L Potassium 2.9 L* (3.6-5.0) mmol/L Chloride 91.9 L (98-107) mmol/L Carbon Dioxide 17 L (22-30) mmol/L Creatinine 0.6 L (0.7-1.2) mg/dL Glucose 115 H (65-100) mg/dL POC Glucose 112 H 115 H (70-105) Calcium 7.7 L (8.4-10.2) mg/dL Assessment and Plan Cultures: Blood cultures 02/04/2019 no growth so far. Assessment: 64 y/o female with history of Nicotine Dependence, hypertension and GERD admitted on 02/04/2019 due to a-week history of worsening shortness of breath, cough, generalized weakness, dizziness, nausea and poor appetite: 1) Severe sepsis: Present on admission, manifested by fever, tacycardia, leukocytosis; likely due to pneumonia. Blood cultures 02/04/2019 no growth so far. UA negative. 2) RLL pneumonia: patient with recent travel to [place] stayed at a [employer] hotel with 4 other family members to celebrate her birthday a week before symptoms started. Noted hyponatremia and thrombocytopenia. DDx: post- influenza pneumonia, Legionnaire disease, Mycoplasma, Chlamydia, Strep pneumoniae. Other possibilities aspiration pneumonia due to symptomatic GERD. She reports persistent right sided pleuritic pain worsening with cough and deep breath ? pleural effusion.CXR showed minimal stringy airspace disease right base. 3) Thrombocytopenia ?unclear influenza pneumonia, Legionnaire disease, Mycoplasma 4) Hyponatremia: from pneumonia Recommendations: - check CT chest eval for empyema / lung abscess in light of persistent fever and pleuritic chest apin - follow-up blood cultures - continue ceftriaxone 2 gm IV qday - start levaquin 750 mg IV q day - start flagyl to cover aspiration pneumonia - check influenza rapid and PCR - check urine legionella antigen and urine strep pneumoniae antigen - add tamiflu Will follow. Briana Torres MD Infectious Diseases [employer] [facility] M [phone] O [phone]
[2019-02-06] MEDS: LEVAQUIN 750MG/150ML 750 MG/150 ML BAG IV SCH (12:30)
[2019-02-06] MEDS: SODIUM CHLORIDE PO SCH ×3 (12:31→22:48)
[2019-02-06] MEDS: TAMIFLU PO SCH ×2 (13:52→22:48)
[2019-02-06] MEDS: KCL 10MEQ/100ML 10 MEQ/100 ML BAG IV SCH ×4 (14:12→21:31)
--- NOTE | 2019-02-06 14:28 | Cat Scan Report ---
CT CHEST WITH CONTRAST: HISTORY: Severe sepsis likely complicated PNA. COMPARISON: none. TECHNIQUE: Helical CT in 1.25mm intervals following IV contrast. Sagittal and coronal reformatted images. FINDINGS: Thyroid gland: Normal. Tracheobronchial tree: Normal. Esophagus: Normal. Heart: Normal. Pericardium: Normal. Mediastinum: There are mild partially calcified plaque throughout the thoracic aorta. No aneurysm or dissection. Lung [place]: Patchy bilateral infiltrates are identified. There is moderate subpleural consolidation in the posterior right lower lobe and lateral right middle lobe consistent with pneumonia. There are subtle patchy groundglass infiltrates in the right upper lobe and left upper lobe. Mild subpleural atelectasis is noted in the posterior left lower lobe. Pleural Spaces: Trace right pleural effusion. Musculoskeletal: Intact. Moderate thoracic spondylosis. Limited images of the upper abdomen demonstrate moderate fatty infiltration throughout the liver and focal cortical scarring in the superior kidneys. IMPRESSION: Bilateral infiltrates concerning for pneumonia. The right middle and lower lobes are most affected. Trace right pleural effusion. Hepatic steatosis.
[2019-02-06] MEDS: FLAGYL 500 MG/100 ML 500 MG/100 ML BAG IV SCH ×2 (15:14→22:47)
--- NOTE | 2019-02-06 16:26 | Consultation ---
History of Present Illness - History of Present Illness 64-year-old lady with medical history significant for alcohol abuse consumes a sixpack of beer daily with minimal abdomen complains of shortness of breath fevers. She is accompanied by her son. She denies any sick contacts does have cough. She denies any lower extremity edema she denies any excessive fluid intake she denies any previous history of hyponatremia. She denies any medications she has some associated nausea Past History Past Medical History: hypertension, other (Obesity) Past Surgical History: No surgical history, Other (reviewed) Social history: single, smoking Family history: no significant family history (reviewed) Medications and Allergies Allergies Allergy/AdvReac Type Severity Reaction Status Date / Time acetaminophen [From Percocet] Allergy Rash Verified 02/05/19 13:43 oxycodone [From Percocet] Allergy Rash Verified 02/05/19 13:43 Home Medications Medication Instructions Recorded Confirmed Last Taken Type No Known Home Medications [No 02/05/19 02/05/19 Unknown History Reported Home Medications] Active Meds: Active Medications Acetaminophen (Tylenol) 650 mg PO Q4H PRN PRN Reason: Pain MILD(1-3)/Fever >100.5/CHEW Last Admin: 02/06/19 12:58 Dose: 650 mg Documented by: Albuterol (Proventil) 2.5 mg IH Q4HRT PRN PRN Reason: Shortness Of Breath Last Admin: 02/06/19 04:07 Dose: 2.5 mg Documented by: Dextrose (D50w (25gm) Syringe) 50 ml IV PRN PRN PRN Reason: Hypoglycemia Heparin Sodium (Porcine) (Heparin) 5,000 unit SUB-Q Q12HR [facility]ERRY Last Admin: 02/06/19 10:27 Dose: 5,000 unit Documented by: Hydrocodone Bit/Homatropine Methylb (Hydromet) 10 ml PO Q6H PRN PRN Reason: Cough Last Admin: 02/06/19 03:52 Dose: 10 ml Documented by: Ceftriaxone Sodium (Rocephin/Ns 2 Gm/100 Ml) 2 gm in 100 mls @ 200 mls/hr IV Q24H [facility]; Protocol Last Admin: 02/05/19 17:52 Dose: 200 mls/hr Documented by: Levofloxacin/Dextrose (Levaquin 750mg/150ml) 750 mg in 150 mls @ 100 mls/hr IV Q24HR [facility]; Protocol Last Admin: 02/06/19 12:30 Dose: 100 mls/hr Documented by: Metronidazole (Flagyl 500 Mg/100 Ml) 500 mg in 100 mls @ 100 mls/hr IV Q8HR [facility]; Protocol Last Admin: 02/06/19 15:14 Dose: 100 mls/hr Documented by: Insulin Human Regular (Humulin R) 0 units SUB-Q ACHS [facility]; Protocol Last Admin: 02/06/19 12:45 Dose: Not Given Documented by: Ondansetron HCl (Zofran) 4 mg IV Q8H PRN PRN Reason: Nausea And Vomiting Oseltamivir Phosphate (Tamiflu) 75 mg PO BID [facility] Stop: 02/10/19 22:01 Last Admin: 02/06/19 13:52 Dose: 75 mg Documented by: Sodium Chloride (Sodium Chloride Flush Syringe 10 Ml) 10 ml IV BID [facility] Last Admin: 02/06/19 10:28 Dose: 10 ml Documented by: Sodium Chloride (Sodium Chloride Flush Syringe 10 Ml) 10 ml IV PRN PRN PRN Reason: LINE FLUSH Sodium Chloride (Sodium Chloride) 2 gm PO TID [facility] Last Admin: 02/06/19 14:12 Dose: 2 gm Documented by: Review of Systems Constitutional: no weight loss, no weight gain Ears, nose, mouth and throat: no deferred, no ear pain Breasts: no deferred, no normal Cardiovascular: no chest pain Respiratory: cough, shortness of breath Gastrointestinal: nausea, vomiting, no abdominal pain, no diarrhea Integumentary: no deferred, no rash Neurological: no head injury, no transient paralysis Psychiatric: no anxiety, no memory loss Endocrine: no cold intolerance, no heat intolerance Hematologic/Lymphatic: no easy bruising, no easy bleeding Allergic/Immunologic: no urticaria Exam - Vital Signs Vital signs: Vital Signs Temp Pulse Resp BP Pulse Ox 101.4 F H 125 H 35 H 147/84 93 02/04/19 15:54 02/04/19 15:54 02/04/19 15:54 02/04/19 15:54 02/04/19 15:54 - General Appearance General appearance: well-developed, well-nourished EENT: ATNC, PERRL Neck: Present: neck supple Respiratory: Rales (right base), Decreased Breath Sounds, Increased Expir. Phase Heart: regular, S1S2 Gastrointestinal: Present: normal, normoactive bowel sounds Integumentary: no rash Neurologic: alert and oriented x3, CN 3-12 intact Psychiatric: mood/affect appropriate Results - Lab Results 02/06/19 07:16 02/06/19 07:16 Most recent lab results Calcium 7.7 mg/dL (8.4-10.2) L 02/06/19 07:16 Magnesium 2.00 mg/dL (1.7-2.3) 02/06/19 07:16 - Image Kidney/bladder ultrasound: image reviewed (I reviewed chest CT with patchy bilateral infiltrates and pleural effusion) Assessment and Plan - Patient Problems (1) Acute hyponatremia Current Visit: Yes Status: Acute Plan to address problem: Acute hyponatremia Sodium 122 urine electrolytes still pending Gives a history consistent with beer potomania Also has had some nausea and pulmonary process ongoing which may cause excessive antidiuretic hormone production We'll add salt tablets 2 g 3 times a day Avoid excessive fluid intake We'll check sodium levels (2) Acidosis Current Visit: Yes Status: Acute Plan to address problem: Anion gap Metabolic acidosis In the setting of recent acute kidney injury We'll add sodium bicarbonate pills (3) Acute hypokalemia Current Visit: Yes Status: Acute Plan to address problem: Acute hypokalemia Has had recent nausea Received potassium chloride and magnesium checked normal Will add potassium chloride IV (4) Pneumonia Current Visit: Yes Status: Acute Plan to address problem: Pneumonia Continue antibiotics (5) Alcohol abuse Current Visit: Yes Status: Acute Plan to address problem: Alcohol abuse Monitor for alcohol withdrawal
[2019-02-06] MEDS ORDERED: ROBITUSSIN AC PO PRN (16:30)
[2019-02-06] MEDS ORDERED: ATIVAN PO PRN (16:30)
[2019-02-06] MEDS ORDERED: LIBRIUM PO PRN (16:30)
--- NOTE | 2019-02-06 16:36 | Progress Note ---
Assessment and Plan Assessment and plan: (1) Pneumonia Current Visit: Yes Status: Acute Qualifiers: Laterality: right Lung location: lower lobe of lung Plan to address problem: Pneumonia Protocol: IV antibiotic therapy, supplemental oxygen, nebulizer, Chest x ray, pulse oximetry, CBC, CMP, blood cultures, Influenza A&B ID consult requested. (2) SIRS (systemic inflammatory response syndrome) Current Visit: Yes Status: Acute Plan to address problem: IV antibiotic therapy, CBC, CMP, chest x ray, urinalysis, (3) Acidosis Current Visit: Yes Status: Acute Plan to address problem: Treat pneumonia, IVF resuscitation therapy, repeat bmp. (4) ARF (acute renal failure) with tubular necrosis Current Visit: Yes Status: Acute Plan to address problem: Monitor uop q shift, bpm, IVF resuscitation therapy, monitor serum creatnine, urinalysis, (5) Hyponatremia syndrome; likely due to alcohol abuse and not eating Nephrology consulted IVF resuscitation therapy, repeat bmp, (6) Hypokalemia Current Visit: Yes Status: Acute Plan to address problem: Supplemented; will check BMP in the morning (7) Left ankle pain Left ankle x ray; showed non displaced fracture Orthopedics consult requested Alcohol abuse; - patient is on CIWA protocol - Patient drinks 6 packs every day, counseled about cessation of drinking but doesn't have any intention to quit (8) DVT prophylaxis Current Visit: Yes Status: Acute Plan to address problem: SCD to BLE while in bed, Prophylactic heparin History Interval history: Patient was seen and evaluated this morning, patient still had episodes of fever overnight. Patient's complaining cough and shortness of breath. Patient has been drinking 6 packs every day. Hospitalist Physical - Physical exam Narrative exam: Not in cardiopulmonary distress. The patient is obese. Vital signs as documented. Head exam is unremarkable. No scleral icterus . Neck is without jugular venous distension, thyromegaly, or carotid bruits. Lungs are clear to auscultation. Cardiac exam reveals regular rate and Rhythm. Abdominal exam reveals normal bowel sounds. Extremities are left ankle swelling. CURTAIN FRAMER: Alert and oriented 3. No focal weakness. - Constitutional Vitals: Temp Pulse Resp BP Pulse Ox 100.2 F H 86 18 126/61 100 02/06/19 12:20 02/06/19 12:20 02/06/19 12:20 02/06/19 12:20 02/06/19 12:20 General appearance: Present: no acute distress, well-nourished Results - Labs CBC & Chem 7: 02/06/19 07:16 02/06/19 07:16 Labs: Laboratory Last Values WBC 8.7 K/mm3 (4.5-11.0) 02/06/19 07:16 RBC 3.34 M/mm3 (3.65-5.03) L 02/06/19 07:16 Hgb 11.1 gm/dl (10.1-14.3) 02/06/19 07:16 Hct 32.4 % (30.3-42.9) 02/06/19 07:16 MCV 97 fl (79-97) 02/06/19 07:16 MCH 33 pg (28-32) H 02/06/19 07:16 MCHC 34 % (30-34) 02/06/19 07:16 RDW 13.7 % (13.2-15.2) 02/06/19 07:16 Plt Count 155 K/mm3 (140-440) 02/06/19 07:16 Lymph % (Auto) 6.4 % (13.4-35.0) L 02/06/19 07:16 [place] % (Auto) 10.0 % (0.0-7.3) H 02/06/19 07:16 Eos % (Auto) 0.0 % (0.0-4.3) 02/06/19 07:16 Baso % (Auto) 0.1 % (0.0-1.8) 02/06/19 07:16 Lymph # 0.6 K/mm3 (1.2-5.4) L 02/06/19 07:16 [place] # 0.9 K/mm3 (0.0-0.8) H 02/06/19 07:16 Eos # 0.0 K/mm3 (0.0-0.4) 02/06/19 07:16 Baso # 0.0 K/mm3 (0.0-0.1) 02/06/19 07:16 Add Manual Diff Complete 02/05/19 08:33 Total Counted 100 02/05/19 08:33 Seg Neutrophils % 83.5 % (40.0-70.0) H 02/06/19 07:16 Seg Neuts % (Manual) 84.0 % (40.0-70.0) H 02/05/19 08:33 3.0 % 02/05/19 08:33 4.0 % (13.4-35.0) L 02/05/19 08:33 Reactive Lymphs % (Man) 0 % 02/05/19 08:33 9.0 % (0.0-7.3) H 02/05/19 08:33 0 % (0.0-4.3) 02/05/19 08:33 0 % (0.0-1.8) 02/05/19 08:33 0 % 02/05/19 08:33 0 % 02/05/19 08:33 0 % 02/05/19 08:33 0 % 02/05/19 08:33 Nucleated RBC % Not Reportable 02/05/19 08:33 Seg Neutrophils # 7.3 K/mm3 (1.8-7.7) 02/06/19 07:16 Seg Neutrophils # Man 8.6 K/mm3 (1.8-7.7) H 02/05/19 08:33 Band Neutrophils # 0.3 K/mm3 02/05/19 08:33 0.4 K/mm3 (1.2-5.4) L 02/05/19 08:33 Abs React Lymphs (Man) 0.0 K/mm3 02/05/19 08:33 0.9 K/mm3 (0.0-0.8) H 02/05/19 08:33 0.0 K/mm3 (0.0-0.4) 02/05/19 08:33 0.0 K/mm3 (0.0-0.1) 02/05/19 08:33 0.0 K/mm3 02/05/19 08:33 0.0 K/mm3 02/05/19 08:33 0.0 K/mm3 02/05/19 08:33 Blast Cells # 0.0 K/mm3 02/05/19 08:33 WBC Morphology Not Reportable 02/05/19 08:33 Hypersegmented Neuts Not Reportable 02/05/19 08:33 Hyposegmented Neuts Not Reportable 02/05/19 08:33 Hypogranular Neuts Not Reportable 02/05/19 08:33 Not Reportable 02/05/19 08:33 Not Reportable 02/05/19 08:33 Not Reportable 02/05/19 08:33 Not Reportable 02/05/19 08:33 Not Reportable 02/05/19 08:33 Not Reportable 02/05/19 08:33 Consistent w auto 02/05/19 08:33 Not Reportable 02/05/19 08:33 Plt Clumps, EDTA Not Reportable 02/05/19 08:33 Not Reportable 02/05/19 08:33 Not Reportable 02/05/19 08:33 Not Reportable 02/05/19 08:33 Plt Morphology Comment Not Reportable 02/05/19 08:33 RBC Morphology Normal 02/05/19 08:33 Dimorphic RBCs Not Reportable 02/05/19 08:33 Not Reportable 02/05/19 08:33 Not Reportable 02/05/19 08:33 Not Reportable 02/05/19 08:33 Not Reportable 02/05/19 08:33 Not Reportable 02/05/19 08:33 Not Reportable 02/05/19 08:33 Not Reportable 02/05/19 08:33 Not Reportable 02/05/19 08:33 Not Reportable 02/05/19 08:33 Not Reportable 02/05/19 08:33 Not Reportable 02/05/19 08:33 Not Reportable 02/05/19 08:33 Not Reportable 02/05/19 08:33 Not Reportable 02/05/19 08:33 Not Reportable 02/05/19 08:33 Not Reportable 02/05/19 08:33 Not Reportable 02/05/19 08:33 Not Reportable 02/05/19 08:33 Not Reportable 02/05/19 08:33 Acanthocytes (Spur) Not Reportable 02/05/19 08:33 Rouleaux Not Reportable 02/05/19 08:33 Not Reportable 02/05/19 08:33 Not Reportable 02/05/19 08:33 Not Reportable 02/05/19 08:33 Not Reportable 02/05/19 08:33 Hem Pathologist Commnt No 02/05/19 08:33 PT 15.8 Sec. (12.2-14.9) H 02/04/19 16:03 INR 1.18 (0.87-1.13) H 02/04/19 16:03 VBG pH 7.442 (7.320-7.420) H 02/04/19 16:03 Sodium 122 mmol/L (137-145) L 02/06/19 07:16 Potassium 2.9 mmol/L (3.6-5.0) L* 02/06/19 07:16 Chloride 91.9 mmol/L (98-107) L 02/06/19 07:16 Carbon Dioxide 17 mmol/L (22-30) L 02/06/19 07:16 16 mmol/L 02/06/19 07:16 BUN 8 mg/dL (7-17) 02/06/19 07:16 0.6 mg/dL (0.7-1.2) L 02/06/19 07:16 Estimated GFR > 60 ml/min 02/06/19 07:16 13 % 02/06/19 07:16 Glucose 115 mg/dL (65-100) H 02/06/19 07:16 POC Glucose 115 (70-105) H 02/06/19 11:41 Lactic Acid 1.30 mmol/L (0.7-2.0) 02/05/19 08:33 Calcium 7.7 mg/dL (8.4-10.2) L 02/06/19 07:16 Magnesium 2.00 mg/dL (1.7-2.3) 02/06/19 07:16 0.60 mg/dL (0.1-1.2) 02/05/19 08:33 AST 103 units/L (5-40) H 02/05/19 08:33 ALT 33 units/L (7-56) 02/05/19 08:33 41 units/L (35-129) 02/05/19 08:33 13.40 mg/dL (0.00-1.30) H 02/06/19 12:36 6.3 g/dL (6.3-8.2) 02/05/19 08:33 2.7 g/dL (3.9-5) L 02/05/19 08:33 0.8 % 02/05/19 08:33 Yellow (Yellow) 02/04/19 21:00 Slightly-cloudy (Clear) 02/04/19 21:00 5.0 (5.0-7.0) 02/04/19 21:00 Ur Specific [place] 1.010 (1.003-1.030) 02/04/19 21:00 100 mg/dl mg/dL (Negative) 02/04/19 21:00 Neg mg/dL (Negative) 02/04/19 21:00 Neg mg/dL (Negative) 02/04/19 21:00 Lg (Negative) 02/04/19 21:00 Neg (Negative) 02/04/19 21:00 Neg (Negative) 02/04/19 21:00 < 2.0 mg/dL (<2.0) 02/04/19 21:00 Ur Leukocyte Esterase Neg (Negative) 02/04/19 21:00 4.0 /HPF (0.0-6.0) 02/04/19 21:00 3.0 /HPF (0.0-6.0) 02/04/19 21:00 U Epithel Cells (Auto) 1.0 /HPF (0-13.0) 02/04/19 21:00 1+ /HPF (Negative) 02/04/19 21:00 Few /HPF 02/04/19 21:00 Influenza A (Rapid) Negative (Negative) 02/06/19 12:02 Influenza A (RT-PCR) Negative (Negative) 02/06/19 12:02 Influenza B (Rapid) Negative (Negative) 02/06/19 12:02 Influenza B (RT-PCR) Negative (Negative) 02/06/19 12:02 Active Medications - Current Medications Current Medications: Generic Name Dose Route Start Last Admin Trade Name Freq PRN Reason Stop Dose Admin Acetaminophen 650 mg 02/04/19 17:10 02/06/19 12:58 Tylenol PO 650 mg Q4H PRN Administration Pain MILD(1-3)/Fever >100.5/CHEW Albuterol 2.5 mg 02/04/19 17:10 02/06/19 04:07 Proventil IH 2.5 mg Q4HRT PRN Administration Shortness Of Breath Chlordiazepoxide HCl 50 mg 02/06/19 16:30 Librium PO Q1HR PRN CIWA-Ar 8-15 Dextrose 50 ml 02/04/19 17:12 D50w (25gm) Syringe IV PRN PRN Hypoglycemia Heparin Sodium (Porcine) 5,000 unit 02/04/19 22:00 02/06/19 10:27 Heparin SUB-Q 5,000 unit Q12HR TERRY Administration Hydrocodone Bit/Homatropine Methylb 10 ml 02/04/19 17:32 02/06/19 03:52 Hydromet PO 10 ml Q6H PRN Administration Cough Ceftriaxone Sodium 2 gm in 100 mls @ 200 mls/hr 02/04/19 18:30 02/05/19 17:52 Rocephin/Ns 2 Gm/100 Ml IV 200 mls/hr Q24H TERRY Administration Protocol Levofloxacin/Dextrose 750 mg in 150 mls @ 100 mls/hr 02/06/19 12:00 02/06/19 12:30 Levaquin 750mg/150ml IV 100 mls/hr Q24HR TERRY Administration Protocol Metronidazole 500 mg in 100 mls @ 100 mls/hr 02/06/19 14:00 02/06/19 15:14 Flagyl 500 Mg/100 Ml IV 100 mls/hr Q8HR TERRY Administration Protocol Insulin Human Regular 0 units 02/04/19 22:00 02/06/19 12:45 Humulin R SUB-Q Not Given ACHS TERRY Protocol Lorazepam 2 mg 02/06/19 16:30 Ativan PO Q1HR PRN CIWA-Ar 8-15 Ondansetron HCl 4 mg 02/04/19 17:10 Zofran IV Q8H PRN Nausea And Vomiting Oseltamivir Phosphate 75 mg 02/06/19 12:00 02/06/19 13:52 Tamiflu PO 02/10/19 22:01 75 mg BID TERRY Administration Pseudoephedrine/Acetam/Chlorphenir 10 ml 02/06/19 16:30 Robitussin Ac PO Q4H PRN Cough Sodium Chloride 10 ml 02/04/19 22:00 02/06/19 10:28 Sodium Chloride Flush Syringe 10 Ml IV 10 ml BID TERRY Administration Sodium Chloride 10 ml 02/04/19 17:10 Sodium Chloride Flush Syringe 10 Ml IV PRN PRN LINE FLUSH Sodium Chloride 2 gm 02/06/19 11:00 02/06/19 14:12 Sodium Chloride PO 2 gm TID TERRY Administration
[2019-02-06] MEDS: ROCEPHIN/NS 2 GM/100 ML 2 GM/100 ML BAG IV SCH (17:38)
[2019-02-06 22:13] LABS: BUN/Creatinine Ratio 10; Blood Urea Nitrogen 6 mg/dL (7-17); Calcium 7.8 mg/dL (8.4-10.2); Hemolysis Index 2
[2019-02-06] MEDS ORDERED: SODIUM BICARBONATE 150 MEQ in D5W 1,000 ML IV SCH (23:45)
[2019-02-07] MEDS: FLAGYL 500 MG/100 ML 500 MG/100 ML BAG IV SCH ×3 (07:08→22:54)
[2019-02-07] MEDS: HumuLIN R SUB-Q SCH ×3 (08:00→18:29)
[2019-02-07] MEDS: SODIUM CHLORIDE PO SCH ×3 (08:47→22:54)
[2019-02-07] MEDS: HYDROMET PO PRN ×2 (08:47→22:55)
--- NOTE | 2019-02-07 08:55 | Progress Note ---
Assessment and Plan Cultures: Blood cultures 02/04/2019 no growth so far. Blood cultures 02/07/2019 : in progress Assessment: 64 y/o female with history of Nicotine Dependence, hypertension and GERD admitted on 02/04/2019 due to a-week history of worsening shortness of breath, cough, generalized weakness, dizziness, nausea and poor appetite: 1) Severe sepsis: Improved. noted fever spike 101.7. likely due to pneumonia. Blood cultures 02/04/2019 no growth so far. UA negative.Influenza rapid/PCR negative. 2) Bilateral Pneumonia : patient with recent travel to [place] stayed at a [employer] hotel with 4 other family members to celebrate her birthday a week before symptoms started. Noted hyponatremia and thrombocytopenia. DDx: post- influenza pneumonia, Legionnaire disease, Mycoplasma, Chlamydia, Strep pn eumoniae. Other possibilities aspiration pneumonia due to symptomatic GERD. She reports persistent right sided pleuritic pain worsening with cough and deep breath ? pleural effusion.CXR showed minimal stringy airspace disease right base. Chest CT shows trace right pleural effusion, Hepatic steatosis. 3) Thrombocytopenia ?unclear influenza pneumonia, Legionnaire disease, Mycoplasma 4) Hyponatremia: from pneumonia Recommendations: - follow-up blood cultures - continue ceftriaxone 2 gm IV qday, D4 - continue levaquin 750 mg IV q day, D2 - continue flagyl to cover aspiration pneumonia, D2 -discontinue tamiflu -follow-up urine legionella antigen and urine strep pneumoniae antigen -repeat blood cultures ordered [facility] M: [phone] O:[phone] Subjective Date of service: 02/07/19 Principal diagnosis: Pneumonia Interval history: Patient seen and examined. Sitting up in bed. States that she is feeling better today. + fevers and cough. Objective - Exam Narrative Exam: General appearance: Awake. Alert. Mild distress observed. Eyes: anicteric sclerae, moist conjunctivae; no lid-lag; PERRLA HENT: Atraumatic; oropharynx clear with moist mucous membranes and no mucosal ulcerations/no oral thrush; normal hard and soft palate. Normal external ears. Neck: Trachea midline; supple, no thyromegaly or lymphadenopathy Lungs: RLL crackles CV: RRR Abdomen: Soft, non-tender; no masses or hepatosplenomegaly Extremities: no edema Skin: Normal temperature, turgor and texture; no rash, ulcers or subcutaneous nodules Psych: Appropriate affect, alert and oriented to person, place and time. Neuro: alert and oriented x 3. Moving all extermities - Constitutional Vitals: Vital Signs Temp Pulse Resp BP Pulse Ox 101.7 F H 90 20 148/81 98 02/06/19 22:19 02/07/19 05:09 02/07/19 05:09 02/07/19 05:09 02/07/19 05:09 Temperature -Last 24 Hours Temperature 101.7 F Temperature 97.9 F Temperature 100.2 F - Labs CBC & Chem 7: 02/07/19 08:16 02/07/19 13:43 Labs: Abnormal lab results 02/06/19 02/06/19 02/06/19 Range/Units 11:41 12:36 21:39 Sodium 121 L (137-145) mmol/L Chloride 90.6 L (98-107) mmol/L Carbon Dioxide 17 L (22-30) mmol/L BUN 6 L (7-17) mg/dL Creatinine 0.6 L (0.7-1.2) mg/dL Glucose 127 H (65-100) mg/dL POC Glucose 115 H (70-105) Calcium 7.8 L (8.4-10.2) mg/dL C-Reactive Protein 13.40 H (0.00-1.30) mg/dL 02/06/19 Range/Units 23:14 Sodium (137-145) mmol/L Chloride (98-107) mmol/L Carbon Dioxide (22-30) mmol/L BUN (7-17) mg/dL Creatinine (0.7-1.2) mg/dL Glucose (65-100) mg/dL POC Glucose 125 H (70-105) Calcium (8.4-10.2) mg/dL C-Reactive Protein (0.00-1.30) mg/dL
[2019-02-07 08:57] LABS: Basophils % (Auto) 0.2 % (0.0-1.8); Eosinophils % (Auto) 0.4 % (0.0-4.3); Hematocrit 30.5 % (30.3-42.9); Hemoglobin 10.4 gm/dl (10.1-14.3); Lymphocytes # (Auto) 0.7 K/mm3 (1.2-5.4); Lymphocytes % (Auto) 7.7 % (13.4-35.0); Mean Corpuscular HGB Conc 34 % (30-34); Mean Corpuscular Volume 96 fl (79-97); Monocytes # (Auto) 1.1 K/mm3 (0.0-0.8); Monocytes % (Auto) 12.8 % (0.0-7.3); Platelet Count 178 K/mm3 (140-440); Red Blood Count 3.17 M/mm3 (3.65-5.03); Red Cell Distribution Width 13.8 % (13.2-15.2)
[2019-02-07 09:17] LABS: BUN/Creatinine Ratio 10; Blood Urea Nitrogen 5 mg/dL (7-17); Calcium 7.8 mg/dL (8.4-10.2); Hemolysis Index 6
[2019-02-07] MEDS ORDERED: VASELINE LIP THERAPY TP PRN (10:00)
[2019-02-07] MEDS: LEVAQUIN 750MG/150ML 750 MG/150 ML BAG IV SCH (13:00)
[2019-02-07] MEDS: HEPARIN SUB-Q SCH ×2 (13:00→22:53)
[2019-02-07] MEDS: TAMIFLU PO SCH (13:00)
[2019-02-07] MEDS: SODIUM CHLORIDE FLUSH SYRINGE 10 ML IV SCH ×2 (13:01→22:56)
[2019-02-07 14:17] LABS: BUN/Creatinine Ratio 10; Blood Urea Nitrogen 5 mg/dL (7-17); Calcium 7.8 mg/dL (8.4-10.2); Hemolysis Index 20
[2019-02-07] MEDS: PROVENTIL IH SCH ×2 (14:19→20:38)
--- NOTE | 2019-02-07 15:04 | Progress Note ---
Assessment and Plan Assessment and plan: (1) Pneumonia - CT chest showed, bilateral infiltrates, right middle lobe most affected - Patient is on Flagyl and Rocephin and ID recommendation - Patient is also on Tamiflu (2) sepsis - Due to #1 - Continue current management (3) Acidosis - Improving (4) ARF (acute renal failure) with tubular necrosis - Was given IV fluids and resolved (5) Hyponatremia syndrome; likely due to alcohol abuse and not eating - Nephrology is following - Improving (6) Hypokalemia - Supplemented (7) Left ankle pain Left ankle x ray; showed non displaced fracture Orthopedics consult requested Alcohol abuse; - patient is on CIWA protocol - Patient drinks 6 packs every day, counseled about cessation of drinking but doesn't have any intention to quit (8) DVT prophylaxis SCD to BLE while in bed, Prophylactic heparin Disposition; continue inpatient care History Interval history: Patient was seen and evaluated this morning, patient didn't have episode overnight. Hospitalist Physical - Physical exam Narrative exam: Not in cardiopulmonary distress. The patient is obese. Vital signs as documented. Head exam is unremarkable. No scleral icterus . Neck is without jugular venous distension, thyromegaly, or carotid bruits. Lungs are clear to auscultation. Cardiac exam reveals regular rate and Rhythm. Abdominal exam reveals normal bowel sounds. Extremities are left ankle swelling. SOMMELIER: Alert and oriented 3. No focal weakness. - Constitutional Vitals: Temp Pulse Resp BP Pulse Ox 98.1 F 78 16 142/76 97 02/07/19 11:57 02/07/19 11:57 02/07/19 11:57 02/07/19 11:57 02/07/19 13:31 General appearance: Present: no acute distress, well-nourished Results - Labs CBC & Chem 7: 02/07/19 08:16 02/07/19 13:43 Labs: Laboratory Last Values WBC 8.5 K/mm3 (4.5-11.0) 02/07/19 08:16 RBC 3.17 M/mm3 (3.65-5.03) L 02/07/19 08:16 Hgb 10.4 gm/dl (10.1-14.3) 02/07/19 08:16 Hct 30.5 % (30.3-42.9) 02/07/19 08:16 MCV 96 fl (79-97) 02/07/19 08:16 MCH 33 pg (28-32) H 02/07/19 08:16 MCHC 34 % (30-34) 02/07/19 08:16 RDW 13.8 % (13.2-15.2) 02/07/19 08:16 Plt Count 178 K/mm3 (140-440) 02/07/19 08:16 Lymph % (Auto) 7.7 % (13.4-35.0) L 02/07/19 08:16 [place] % (Auto) 12.8 % (0.0-7.3) H 02/07/19 08:16 Eos % (Auto) 0.4 % (0.0-4.3) 02/07/19 08:16 Baso % (Auto) 0.2 % (0.0-1.8) 02/07/19 08:16 Lymph # 0.7 K/mm3 (1.2-5.4) L 02/07/19 08:16 [place] # 1.1 K/mm3 (0.0-0.8) H 02/07/19 08:16 Eos # 0.0 K/mm3 (0.0-0.4) 02/07/19 08:16 Baso # 0.0 K/mm3 (0.0-0.1) 02/07/19 08:16 Add Manual Diff Complete 02/05/19 08:33 Total Counted 100 02/05/19 08:33 Seg Neutrophils % 78.9 % (40.0-70.0) H 02/07/19 08:16 Seg Neuts % (Manual) 84.0 % (40.0-70.0) H 02/05/19 08:33 3.0 % 02/05/19 08:33 4.0 % (13.4-35.0) L 02/05/19 08:33 Reactive Lymphs % (Man) 0 % 02/05/19 08:33 9.0 % (0.0-7.3) H 02/05/19 08:33 0 % (0.0-4.3) 02/05/19 08:33 0 % (0.0-1.8) 02/05/19 08:33 0 % 02/05/19 08:33 0 % 02/05/19 08:33 0 % 02/05/19 08:33 0 % 02/05/19 08:33 Nucleated RBC % Not Reportable 02/05/19 08:33 Seg Neutrophils # 6.7 K/mm3 (1.8-7.7) 02/07/19 08:16 Seg Neutrophils # Man 8.6 K/mm3 (1.8-7.7) H 02/05/19 08:33 Band Neutrophils # 0.3 K/mm3 02/05/19 08:33 0.4 K/mm3 (1.2-5.4) L 02/05/19 08:33 Abs React Lymphs (Man) 0.0 K/mm3 02/05/19 08:33 0.9 K/mm3 (0.0-0.8) H 02/05/19 08:33 0.0 K/mm3 (0.0-0.4) 02/05/19 08:33 0.0 K/mm3 (0.0-0.1) 02/05/19 08:33 0.0 K/mm3 02/05/19 08:33 0.0 K/mm3 02/05/19 08:33 0.0 K/mm3 02/05/19 08:33 Blast Cells # 0.0 K/mm3 02/05/19 08:33 WBC Morphology Not Reportable 02/05/19 08:33 Hypersegmented Neuts Not Reportable 02/05/19 08:33 Hyposegmented Neuts Not Reportable 02/05/19 08:33 Hypogranular Neuts Not Reportable 02/05/19 08:33 Not Reportable 02/05/19 08:33 Not Reportable 02/05/19 08:33 Not Reportable 02/05/19 08:33 Not Reportable 02/05/19 08:33 Not Reportable 02/05/19 08:33 Not Reportable 02/05/19 08:33 Consistent w auto 02/05/19 08:33 Not Reportable 02/05/19 08:33 Plt Clumps, EDTA Not Reportable 02/05/19 08:33 Not Reportable 02/05/19 08:33 Not Reportable 02/05/19 08:33 Not Reportable 02/05/19 08:33 Plt Morphology Comment Not Reportable 02/05/19 08:33 RBC Morphology Normal 02/05/19 08:33 Dimorphic RBCs Not Reportable 02/05/19 08:33 Not Reportable 02/05/19 08:33 Not Reportable 02/05/19 08:33 Not Reportable 02/05/19 08:33 Not Reportable 02/05/19 08:33 Not Reportable 02/05/19 08:33 Not Reportable 02/05/19 08:33 Not Reportable 02/05/19 08:33 Not Reportable 02/05/19 08:33 Not Reportable 02/05/19 08:33 Not Reportable 02/05/19 08:33 Not Reportable 02/05/19 08:33 Not Reportable 02/05/19 08:33 Not Reportable 02/05/19 08:33 Not Reportable 02/05/19 08:33 Not Reportable 02/05/19 08:33 Not Reportable 02/05/19 08:33 Not Reportable 02/05/19 08:33 Not Reportable 02/05/19 08:33 Not Reportable 02/05/19 08:33 Acanthocytes (Spur) Not Reportable 02/05/19 08:33 Rouleaux Not Reportable 02/05/19 08:33 Not Reportable 02/05/19 08:33 Not Reportable 02/05/19 08:33 Not Reportable 02/05/19 08:33 Not Reportable 02/05/19 08:33 Hem Pathologist Commnt No 02/05/19 08:33 PT 15.8 Sec. (12.2-14.9) H 02/04/19 16:03 INR 1.18 (0.87-1.13) H 02/04/19 16:03 VBG pH 7.442 (7.320-7.420) H 02/04/19 16:03 Sodium 128 mmol/L (137-145) L 02/07/19 13:43 Potassium 3.7 mmol/L (3.6-5.0) 02/07/19 13:43 Chloride 94.0 mmol/L (98-107) L 02/07/19 13:43 Carbon Dioxide 19 mmol/L (22-30) L 02/07/19 13:43 19 mmol/L 02/07/19 13:43 BUN 5 mg/dL (7-17) L 02/07/19 13:43 0.5 mg/dL (0.7-1.2) L 02/07/19 13:43 Estimated GFR > 60 ml/min 02/07/19 13:43 10 % 02/07/19 13:43 Glucose 136 mg/dL (65-100) H 02/07/19 13:43 POC Glucose 116 (70-105) H 02/07/19 11:22 Lactic Acid 1.30 mmol/L (0.7-2.0) 02/05/19 08:33 Calcium 7.8 mg/dL (8.4-10.2) L 02/07/19 13:43 Magnesium 2.00 mg/dL (1.7-2.3) 02/06/19 07:16 0.60 mg/dL (0.1-1.2) 02/05/19 08:33 AST 103 units/L (5-40) H 02/05/19 08:33 ALT 33 units/L (7-56) 02/05/19 08:33 41 units/L (35-129) 02/05/19 08:33 13.40 mg/dL (0.00-1.30) H 02/06/19 12:36 6.3 g/dL (6.3-8.2) 02/05/19 08:33 2.7 g/dL (3.9-5) L 02/05/19 08:33 0.8 % 02/05/19 08:33 Yellow (Yellow) 02/04/19 21:00 Slightly-cloudy (Clear) 02/04/19 21:00 5.0 (5.0-7.0) 02/04/19 21:00 Ur Specific [place] 1.010 (1.003-1.030) 02/04/19 21:00 100 mg/dl mg/dL (Negative) 02/04/19 21:00 Neg mg/dL (Negative) 02/04/19 21:00 Neg mg/dL (Negative) 02/04/19 21:00 Lg (Negative) 02/04/19 21:00 Neg (Negative) 02/04/19 21:00 Neg (Negative) 02/04/19 21:00 < 2.0 mg/dL (<2.0) 02/04/19 21:00 Ur Leukocyte Esterase Neg (Negative) 02/04/19 21:00 4.0 /HPF (0.0-6.0) 02/04/19 21:00 3.0 /HPF (0.0-6.0) 02/04/19 21:00 U Epithel Cells (Auto) 1.0 /HPF (0-13.0) 02/04/19 21:00 1+ /HPF (Negative) 02/04/19 21:00 Few /HPF 02/04/19 21:00 425 Mosm/kg 02/06/19 16:55 10 mmol/L 02/06/19 16:55 14.59 mmol/L 02/06/19 16:55 Influenza A (Rapid) Negative (Negative) 02/06/19 12:02 Influenza A (RT-PCR) Negative (Negative) 02/06/19 12:02 Influenza B (Rapid) Negative (Negative) 02/06/19 12:02 Influenza B (RT-PCR) Negative (Negative) 02/06/19 12:02 Active Medications - Current Medications Current Medications: Generic Name Dose Route Start Last Admin Trade Name Freq PRN Reason Stop Dose Admin Acetaminophen 650 mg 02/04/19 17:10 02/06/19 12:58 Tylenol PO 650 mg Q4H PRN Administration Pain MILD(1-3)/Fever >100.5/CHEW Albuterol 2.5 mg 02/07/19 14:00 02/07/19 14:19 Proventil IH Not Given Q6HRT TERRY Chlordiazepoxide HCl 50 mg 02/06/19 16:30 Librium PO Q1HR PRN CIWA-Ar 8-15 Dextrose 50 ml 02/04/19 17:12 D50w (25gm) Syringe IV PRN PRN Hypoglycemia Heparin Sodium (Porcine) 5,000 unit 02/04/19 22:00 02/07/19 13:00 Heparin SUB-Q 5,000 unit Q12HR TERRY Administration Hydrocodone Bit/Homatropine Methylb 10 ml 02/04/19 17:32 02/07/19 08:47 Hydromet PO 10 ml Q6H PRN Administration Cough Hydrophilic Ointment 1 applic 02/07/19 10:00 02/07/19 12:59 Vaseline Lip Therapy TP 1 applic DIRECT PRN Administration Dry Lips Ceftriaxone Sodium 2 gm in 100 mls @ 200 mls/hr 05/19/19 18:30 02/06/19 17:38 Rocephin/Ns 2 Gm/100 Ml IV 200 mls/hr Q24H TERRY Administration Protocol Levofloxacin/Dextrose 750 mg in 150 mls @ 100 mls/hr 02/06/19 12:00 02/07/19 13:00 Levaquin 750mg/150ml IV 100 mls/hr Q24HR TERRY Administration Protocol Metronidazole 500 mg in 100 mls @ 100 mls/hr 02/06/19 14:00 02/07/19 14:49 Flagyl 500 Mg/100 Ml IV 100 mls/hr Q8HR TERRY Administration Protocol Sodium Bicarbonate 150 meq/ 1,150 mls @ 150 mls/hr 02/06/19 23:45 02/07/19 07:34 Dextrose IV 150 mls/hr DIRECT TERRY Administration Insulin Human Regular 0 units 02/04/19 22:00 02/07/19 11:30 Humulin R SUB-Q Not Given ACHS TERRY Protocol Lorazepam 2 mg 02/06/19 16:30 Ativan PO Q1HR PRN CIWA-Ar 8-15 Ondansetron HCl 4 mg 02/04/19 17:10 Zofran IV Q8H PRN Nausea And Vomiting Oseltamivir Phosphate 75 mg 02/06/19 12:00 02/07/19 13:00 Tamiflu PO 02/10/19 22:01 75 mg BID TERRY Administration Pseudoephedrine/Acetam/Chlorphenir 10 ml 02/06/19 16:30 Robitussin Ac PO Q4H PRN Cough Sodium Chloride 10 ml 02/04/19 22:00 02/07/19 13:01 Sodium Chloride Flush Syringe 10 Ml IV 10 ml BID TERRY Administration Sodium Chloride 10 ml 02/04/19 17:10 Sodium Chloride Flush Syringe 10 Ml IV PRN PRN LINE FLUSH Sodium Chloride 2 gm 02/06/19 11:00 02/07/19 14:49 Sodium Chloride PO 2 gm TID TERRY Administration
--- NOTE | 2019-02-07 15:40 | Progress Note ---
Assessment and Plan - Patient Problems (1) Acute hyponatremia Current Visit: Yes Status: Acute Plan to address problem: Acute hyponatremia Sodium 128 urine electrolytes showed elevated urine osmolality with low urine sodium is more consistent with volume depletion Received gentle fluid hydration for a few hours However patient's history consistent with beer potomania Also has had some nausea and pulmonary process ongoing which may cause excessive antidiuretic hormone production Continue salt tablets 2 g 3 times a day We'll discontinue intravenous fluids Avoid excessive fluid intake We'll check sodium levels (2) Acidosis Current Visit: Yes Status: Acute Plan to address problem: Metabolic acidosis In the setting of recent acute kidney injury Received sodium bicarbonate infusion (3) Acute hypokalemia Current Visit: Yes Status: Acute Plan to address problem: Acute hypokalemia resolved resolved Has had recent nausea Received potassium chloride and magnesium checked normal (4) Pneumonia Current Visit: Yes Status: Acute Plan to address problem: Pneumonia Continue antibiotics (5) Alcohol abuse Current Visit: Yes Status: Acute Plan to address problem: Alcohol abuse Monitor for alcohol withdrawal Subjective Principal diagnosis: Pneumonia Interval history: 64-year-old lady with medical history significant for alcohol abuse consumes a sixpack of beer daily with minimal abdomen complains of shortness of breath fevers. Patient seems to be doing well still has lower extremity edema reports breathing is improved Objective - Vital Signs Vital signs: Vital Signs - 12hr 02/07/19 02/07/19 02/07/19 05:09 11:57 13:31 Temperature 98.1 F Pulse Rate 90 78 Respiratory 20 16 Rate Blood Pressure 148/81 142/76 O2 Sat by Pulse 98 100 97 Oximetry - General Appearance General appearance: well-developed, well-nourished EENT: ATNC, PERRL, mucous membranes moist Neck: no JVD Respiratory: Present: Rales, Decreased Breath Sounds Cardiology: regular, S1S2 Gastrointestinal: normal, normoactive bowel sounds Integumentary: no rash Neurologic: alert and oriented x3, CN 3-12 intact Psychiatric: mood/affect appropriate - Lab 02/07/19 08:16 02/07/19 13:43 Most recent lab results Calcium 7.8 mg/dL (8.4-10.2) L 02/07/19 13:43 Magnesium 2.00 mg/dL (1.7-2.3) 02/06/19 07:16 10 mmol/L 02/06/19 16:55 - Imaging Chest x-ray: image reviewed (review chest x-ray with patchy basilar infiltrates) Medications & Allergies - Medications Allergies/Adverse Reactions: Allergies acetaminophen [From Percocet] Allergy (Verified 02/05/19 13:43) Rash oxycodone [From Percocet] Allergy (Verified 02/05/19 13:43) Rash Home Medications: Home Medications Medication Instructions Recorded Confirmed Last Taken Type No Known Home Medications [No 02/05/19 02/05/19 Unknown History Reported Home Medications] Active Medications: Generic Name Dose Route Start Last Admin Trade Name Freq PRN Reason Stop Dose Admin Acetaminophen 650 mg 02/04/19 17:10 02/06/19 12:58 Tylenol PO 650 mg Q4H PRN Administration Pain MILD(1-3)/Fever >100.5/CHEW Albuterol 2.5 mg 02/07/19 14:00 02/07/19 14:19 Proventil IH Not Given Q6HRT TERRY Chlordiazepoxide HCl 50 mg 02/06/19 16:30 Librium PO Q1HR PRN CIWA-Ar 8-15 Dextrose 50 ml 02/04/19 17:12 D50w (25gm) Syringe IV PRN PRN Hypoglycemia Heparin Sodium (Porcine) 5,000 unit 02/04/19 22:00 02/07/19 13:00 Heparin SUB-Q 5,000 unit Q12HR TERRY Administration Hydrocodone Bit/Homatropine Methylb 10 ml 02/04/19 17:32 02/07/19 08:47 Hydromet PO 10 ml Q6H PRN Administration Cough Hydrophilic Ointment 1 applic 02/07/19 10:00 02/07/19 12:59 Vaseline Lip Therapy TP 1 applic DIRECT PRN Administration Dry Lips Ceftriaxone Sodium 2 gm in 100 mls @ 200 mls/hr 02/04/19 18:30 02/06/19 17:38 Rocephin/Ns 2 Gm/100 Ml IV 200 mls/hr Q24H TERRY Administration Protocol Levofloxacin/Dextrose 750 mg in 150 mls @ 100 mls/hr 02/06/19 12:00 02/07/19 13:00 Levaquin 750mg/150ml IV 100 mls/hr Q24HR TERRY Administration Protocol Metronidazole 500 mg in 100 mls @ 100 mls/hr 02/06/19 14:00 02/07/19 14:49 Flagyl 500 Mg/100 Ml IV 100 mls/hr Q8HR TERRY Administration Protocol Insulin Human Regular 0 units 02/04/19 22:00 02/07/19 11:30 Humulin R SUB-Q Not Given ACHS TERRY Protocol Lorazepam 2 mg 02/06/19 16:30 Ativan PO Q1HR PRN CIWA-Ar 8-15 Ondansetron HCl 4 mg 02/04/19 17:10 Zofran IV Q8H PRN Nausea And Vomiting Oseltamivir Phosphate 75 mg 02/06/19 12:00 02/07/19 13:00 Tamiflu PO 02/10/19 22:01 75 mg BID TERRY Administration Pseudoephedrine/Acetam/Chlorphenir 10 ml 02/06/19 16:30 Robitussin Ac PO Q4H PRN Cough Sodium Chloride 10 ml 02/04/19 22:00 02/07/19 13:01 Sodium Chloride Flush Syringe 10 Ml IV 10 ml BID TERRY Administration Sodium Chloride 10 ml 02/04/19 17:10 Sodium Chloride Flush Syringe 10 Ml IV PRN PRN LINE FLUSH Sodium Chloride 2 gm 02/06/19 11:00 02/07/19 14:49 Sodium Chloride PO 2 gm TID TERRY Administration
--- NOTE | 2019-02-07 17:20 | Consultation ---
History of Present Illness - [facility] Consult date: 02/07/19 Consult reason: fracture History of present illness: 64-year-old female who complains of left ankle pain and swelling after a fall recently patient underwent x-ray examination which revealed a nondisplaced unicortical fracture of the left distal fibula Past History Past Medical History: hypertension, other (Obesity) Past Surgical History: No surgical history, Other (reviewed) Social history: single, smoking Family history: no significant family history (reviewed) Medications and Allergies Allergies Allergy/AdvReac Type Severity Reaction Status Date / Time acetaminophen [From Percocet] Allergy Rash Verified 02/05/19 13:43 oxycodone [From Percocet] Allergy Rash Verified 02/05/19 13:43 Home Medications Medication Instructions Recorded Confirmed Last Taken Type No Known Home Medications [No 02/05/19 02/05/19 Unknown History Reported Home Medications] Active Meds: Active Medications Acetaminophen (Tylenol) 650 mg PO Q4H PRN PRN Reason: Pain MILD(1-3)/Fever >100.5/CHEW Last Admin: 02/06/19 12:58 Dose: 650 mg Documented by: Albuterol (Proventil) 2.5 mg IH Q6HRT [facility] Last Admin: 02/07/19 14:19 Dose: Not Given Documented by: Chlordiazepoxide HCl (Librium) 50 mg PO Q1HR PRN PRN Reason: CIWA-Ar 8-15 Dextrose (D50w (25gm) Syringe) 50 ml IV PRN PRN PRN Reason: Hypoglycemia Heparin Sodium (Porcine) (Heparin) 5,000 unit SUB-Q Q12HR [facility] Last Admin: 02/07/19 13:00 Dose: 5,000 unit Documented by: Hydrocodone Bit/Homatropine Methylb (Hydromet) 10 ml PO Q6H PRN PRN Reason: Cough Last Admin: 02/07/19 08:47 Dose: 10 ml Documented by: Hydrophilic Ointment (Vaseline Lip Therapy) 1 applic TP DIRECT PRN PRN Reason: Dry Lips Last Admin: 02/07/19 12:59 Dose: 1 applic Documented by: Ceftriaxone Sodium (Rocephin/Ns 2 Gm/100 Ml) 2 gm in 100 mls @ 200 mls/hr IV Q24H [facility]; Protocol Last Admin: 02/06/19 17:38 Dose: 200 mls/hr Documented by: Levofloxacin/Dextrose (Levaquin 750mg/150ml) 750 mg in 150 mls @ 100 mls/hr IV Q24HR [facility]; Protocol Last Admin: 02/07/19 13:00 Dose: 100 mls/hr Documented by: Metronidazole (Flagyl 500 Mg/100 Ml) 500 mg in 100 mls @ 100 mls/hr IV Q8HR [facility]; Protocol Last Admin: 02/07/19 14:49 Dose: 100 mls/hr Documented by: Insulin Human Regular (Humulin R) 0 units SUB-Q ACHS [facility]; Protocol Last Admin: 02/07/19 11:30 Dose: Not Given Documented by: Lorazepam (Ativan) 2 mg PO Q1HR PRN PRN Reason: CIWA-Ar 8-15 Ondansetron HCl (Zofran) 4 mg IV Q8H PRN PRN Reason: Nausea And Vomiting Pseudoephedrine/Acetam/Chlorphenir (Robitussin Ac) 10 ml PO Q4H PRN PRN Reason: Cough Sodium Chloride (Sodium Chloride Flush Syringe 10 Ml) 10 ml IV BID [facility] Last Admin: 02/07/19 13:01 Dose: 10 ml Documented by: Sodium Chloride (Sodium Chloride Flush Syringe 10 Ml) 10 ml IV PRN PRN PRN Reason: LINE FLUSH Sodium Chloride (Sodium Chloride) 2 gm PO TID [facility] Last Admin: 02/07/19 14:49 Dose: 2 gm Documented by: Physical Examination - Physical exam Narrative exam: Physical examination significant musculoskeletal findings release of the left lower extremity at the ankle she is noted to have moderate swelling with a large areas of ecchymosis along the lateral border she is tender at the distal fibula there is no obvious deformity Eyes: PERRL ENT: Positive: clear oral mucosa Respiratory effort: normal Respiratory: bilateral: CTA Rhythm: regular Heart Sounds: Positive: S1 & S2 General gastrointestinal: Positive: soft, non-tender, non-distended, normal bowel sounds Integumentary: clear, warm, dry Neurologic: Positive: CNII-XII intact, moves all extremities, gait normal. Negative: focal deficits Assessment and Plan Assessment- fracture left distal fibula more of an avulsion type fracture therefore fairly stable injury Recommendations- a walking boot along with physical therapy for gait training
[2019-02-07] MEDS: ROCEPHIN/NS 2 GM/100 ML 2 GM/100 ML BAG IV SCH (20:39)
[2019-02-08] MEDS: PROVENTIL IH SCH ×4 (02:16→19:31)
[2019-02-08 07:36] LABS: BUN/Creatinine Ratio 6; Blood Urea Nitrogen 3 mg/dL (7-17); Calcium 7.8 mg/dL (8.4-10.2); Hemolysis Index 3
[2019-02-08] MEDS ORDERED: K-DUR PO ONE ×3 (09:00→16:00)
[2019-02-08] MEDS: HumuLIN R SUB-Q SCH ×2 (11:01→19:18)
[2019-02-08] MEDS: SODIUM CHLORIDE FLUSH SYRINGE 10 ML IV SCH (11:45)
[2019-02-08] MEDS: LEVAQUIN 750MG/150ML 750 MG/150 ML BAG IV SCH (11:47)
[2019-02-08] MEDS: HEPARIN SUB-Q SCH ×2 (11:47→22:06)
[2019-02-08] MEDS: SODIUM CHLORIDE PO SCH ×3 (11:47→22:05)
[2019-02-08 14:31] LABS: BUN/Creatinine Ratio 6; Blood Urea Nitrogen 3 mg/dL (7-17); Calcium 8.3 mg/dL (8.4-10.2); Hemolysis Index 32
--- NOTE | 2019-02-08 14:49 | Progress Note ---
Assessment and Plan Assessment and plan: (1) Pneumonia - CT chest showed, bilateral infiltrates, right middle lobe most affected - Patient is on Flagyl and Rocephin and ID recommendation - Patient is also on Tamiflu (2) sepsis - Due to #1 - Continue current management (3) Acidosis - Improving (4) ARF (acute renal failure) with tubular necrosis - Was given IV fluids and resolved (5) Hyponatremia syndrome; likely due to alcohol abuse and not eating - Nephrology is following - patient is on salt tablets - Improving (6) Hypokalemia - Supplemented (7) Left ankle pain Left ankle x ray; showed non displaced fracture Orthopedics consult and recommend working boot Alcohol abuse; - patient is on CIWA protocol - Patient drinks 6 packs every day, counseled about cessation of drinking but doesn't have any intention to quit (8) DVT prophylaxis SCD to BLE while in bed, Prophylactic heparin Disposition; possible discharge tomorrow. History Interval history: Patient was seen and evaluated this morning, patient didn't have fever overnight. Hospitalist Physical - Physical exam Narrative exam: Not in cardiopulmonary distress. The patient is obese. Vital signs as documented. Head exam is unremarkable. No scleral icterus . Neck is without jugular venous distension, thyromegaly, or carotid bruits. Lungs are clear to auscultation. Cardiac exam reveals regular rate and Rhythm. Abdominal exam reveals normal bowel sounds. Extremities are left ankle swelling. WHIPPED TOPPING MIXER: Alert and oriented 3. No focal weakness. - Constitutional Vitals: Temp Pulse Resp BP Pulse Ox 98.3 F 85 19 158/64 97 02/08/19 12:11 02/08/19 13:34 02/08/19 13:34 02/08/19 12:11 02/08/19 12:11 General appearance: Present: no acute distress, well-nourished Results - Labs CBC & Chem 7: 02/07/19 08:16 02/08/19 12:58 Labs: Laboratory Last Values WBC 8.5 K/mm3 (4.5-11.0) 02/07/19 08:16 RBC 3.17 M/mm3 (3.65-5.03) L 02/07/19 08:16 Hgb 10.4 gm/dl (10.1-14.3) 02/07/19 08:16 Hct 30.5 % (30.3-42.9) 02/07/19 08:16 MCV 96 fl (79-97) 02/07/19 08:16 MCH 33 pg (28-32) H 02/07/19 08:16 MCHC 34 % (30-34) 02/07/19 08:16 RDW 13.8 % (13.2-15.2) 02/07/19 08:16 Plt Count 178 K/mm3 (140-440) 02/07/19 08:16 Lymph % (Auto) 7.7 % (13.4-35.0) L 02/07/19 08:16 [place] % (Auto) 12.8 % (0.0-7.3) H 02/07/19 08:16 Eos % (Auto) 0.4 % (0.0-4.3) 02/07/19 08:16 Baso % (Auto) 0.2 % (0.0-1.8) 02/07/19 08:16 Lymph # 0.7 K/mm3 (1.2-5.4) L 02/07/19 08:16 [place] # 1.1 K/mm3 (0.0-0.8) H 02/07/19 08:16 Eos # 0.0 K/mm3 (0.0-0.4) 02/07/19 08:16 Baso # 0.0 K/mm3 (0.0-0.1) 02/07/19 08:16 Add Manual Diff Complete 02/05/19 08:33 Total Counted 100 02/05/19 08:33 Seg Neutrophils % 78.9 % (40.0-70.0) H 02/07/19 08:16 Seg Neuts % (Manual) 84.0 % (40.0-70.0) H 02/05/19 08:33 3.0 % 02/05/19 08:33 4.0 % (13.4-35.0) L 02/05/19 08:33 Reactive Lymphs % (Man) 0 % 02/05/19 08:33 9.0 % (0.0-7.3) H 02/05/19 08:33 0 % (0.0-4.3) 02/05/19 08:33 0 % (0.0-1.8) 02/05/19 08:33 0 % 02/05/19 08:33 0 % 02/05/19 08:33 0 % 02/05/19 08:33 0 % 02/05/19 08:33 Nucleated RBC % Not Reportable 02/05/19 08:33 Seg Neutrophils # 6.7 K/mm3 (1.8-7.7) 02/07/19 08:16 Seg Neutrophils # Man 8.6 K/mm3 (1.8-7.7) H 02/05/19 08:33 Band Neutrophils # 0.3 K/mm3 02/05/19 08:33 0.4 K/mm3 (1.2-5.4) L 02/05/19 08:33 Abs React Lymphs (Man) 0.0 K/mm3 02/05/19 08:33 0.9 K/mm3 (0.0-0.8) H 02/05/19 08:33 0.0 K/mm3 (0.0-0.4) 02/05/19 08:33 0.0 K/mm3 (0.0-0.1) 02/05/19 08:33 0.0 K/mm3 02/05/19 08:33 0.0 K/mm3 02/05/19 08:33 0.0 K/mm3 02/05/19 08:33 Blast Cells # 0.0 K/mm3 02/05/19 08:33 WBC Morphology Not Reportable 02/05/19 08:33 Hypersegmented Neuts Not Reportable 02/05/19 08:33 Hyposegmented Neuts Not Reportable 02/05/19 08:33 Hypogranular Neuts Not Reportable 02/05/19 08:33 Not Reportable 02/05/19 08:33 Not Reportable 02/05/19 08:33 Not Reportable 02/05/19 08:33 Not Reportable 02/05/19 08:33 Not Reportable 02/05/19 08:33 Not Reportable 02/05/19 08:33 Consistent w auto 02/05/19 08:33 Not Reportable 02/05/19 08:33 Plt Clumps, EDTA Not Reportable 02/05/19 08:33 Not Reportable 02/05/19 08:33 Not Reportable 02/05/19 08:33 Not Reportable 02/05/19 08:33 Plt Morphology Comment Not Reportable 02/05/19 08:33 RBC Morphology Normal 02/05/19 08:33 Dimorphic RBCs Not Reportable 02/05/19 08:33 Not Reportable 02/05/19 08:33 Not Reportable 02/05/19 08:33 Not Reportable 02/05/19 08:33 Not Reportable 02/05/19 08:33 Not Reportable 02/05/19 08:33 Not Reportable 02/05/19 08:33 Not Reportable 02/05/19 08:33 Not Reportable 02/05/19 08:33 Not Reportable 02/05/19 08:33 Not Reportable 02/05/19 08:33 Not Reportable 02/05/19 08:33 Not Reportable 02/05/19 08:33 Not Reportable 02/05/19 08:33 Not Reportable 02/05/19 08:33 Not Reportable 02/05/19 08:33 Not Reportable 02/05/19 08:33 Not Reportable 02/05/19 08:33 Not Reportable 02/05/19 08:33 Not Reportable 02/05/19 08:33 Acanthocytes (Spur) Not Reportable 02/05/19 08:33 Rouleaux Not Reportable 02/05/19 08:33 Not Reportable 02/05/19 08:33 Not Reportable 02/05/19 08:33 Not Reportable 02/05/19 08:33 Not Reportable 02/05/19 08:33 Hem Pathologist Commnt No 02/05/19 08:33 PT 15.8 Sec. (12.2-14.9) H 02/04/19 16:03 INR 1.18 (0.87-1.13) H 02/04/19 16:03 VBG pH 7.442 (7.320-7.420) H 02/04/19 16:03 Sodium 131 mmol/L (137-145) L 02/08/19 12:58 Potassium 3.3 mmol/L (3.6-5.0) L 02/08/19 12:58 Chloride 93.8 mmol/L (98-107) L 02/08/19 12:58 Carbon Dioxide 20 mmol/L (22-30) L 02/08/19 12:58 21 mmol/L 02/08/19 12:58 BUN 3 mg/dL (7-17) L 02/08/19 12:58 0.5 mg/dL (0.7-1.2) L 02/08/19 12:58 Estimated GFR > 60 ml/min 02/08/19 12:58 6 % 02/08/19 12:58 Glucose 122 mg/dL (65-100) H 02/08/19 12:58 POC Glucose 126 (70-105) H 02/08/19 11:54 Lactic Acid 1.30 mmol/L (0.7-2.0) 02/05/19 08:33 Calcium 8.3 mg/dL (8.4-10.2) L 02/08/19 12:58 Magnesium 1.70 mg/dL (1.7-2.3) 02/08/19 12:58 0.60 mg/dL (0.1-1.2) 02/05/19 08:33 AST 103 units/L (5-40) H 02/05/19 08:33 ALT 33 units/L (7-56) 02/05/19 08:33 41 units/L (35-129) 02/05/19 08:33 13.40 mg/dL (0.00-1.30) H 02/06/19 12:36 6.3 g/dL (6.3-8.2) 02/05/19 08:33 2.7 g/dL (3.9-5) L 02/05/19 08:33 0.8 % 02/05/19 08:33 Yellow (Yellow) 02/04/19 21:00 Slightly-cloudy (Clear) 02/04/19 21:00 5.0 (5.0-7.0) 02/04/19 21:00 Ur Specific [place] 1.010 (1.003-1.030) 02/04/19 21:00 100 mg/dl mg/dL (Negative) 02/04/19 21:00 Neg mg/dL (Negative) 02/04/19 21:00 Neg mg/dL (Negative) 02/04/19 21:00 Lg (Negative) 02/04/19 21:00 Neg (Negative) 02/04/19 21:00 Neg (Negative) 02/04/19 21:00 < 2.0 mg/dL (<2.0) 02/04/19 21:00 Ur Leukocyte Esterase Neg (Negative) 02/04/19 21:00 4.0 /HPF (0.0-6.0) 02/04/19 21:00 3.0 /HPF (0.0-6.0) 02/04/19 21:00 U Epithel Cells (Auto) 1.0 /HPF (0-13.0) 02/04/19 21:00 1+ /HPF (Negative) 02/04/19 21:00 Few /HPF 02/04/19 21:00 425 Mosm/kg 02/06/19 16:55 10 mmol/L 02/06/19 16:55 14.59 mmol/L 02/06/19 16:55 Influenza A (Rapid) Negative (Negative) 02/06/19 12:02 Influenza A (RT-PCR) Negative (Negative) 02/06/19 12:02 Influenza B (Rapid) Negative (Negative) 02/06/19 12:02 Influenza B (RT-PCR) Negative (Negative) 02/06/19 12:02 Active Medications - Current Medications Current Medications: Generic Name Dose Route Start Last Admin Trade Name Freq PRN Reason Stop Dose Admin Acetaminophen 650 mg 02/04/19 17:10 02/06/19 12:58 Tylenol PO 650 mg Q4H PRN Administration Pain MILD(1-3)/Fever >100.5/CHEW Albuterol 2.5 mg 02/07/19 14:00 02/08/19 13:31 Proventil IH 2.5 mg Q6HRT TERRY Administration Chlordiazepoxide HCl 50 mg 02/06/19 16:30 Librium PO Q1HR PRN CIWA-Ar 8-15 Dextrose 50 ml 02/04/19 17:12 D50w (25gm) Syringe IV PRN PRN Hypoglycemia Heparin Sodium (Porcine) 5,000 unit 02/04/19 22:00 02/08/19 11:47 Heparin SUB-Q 5,000 unit Q12HR TERRY Administration Hydrocodone Bit/Homatropine Methylb 10 ml 02/04/19 17:32 02/07/19 22:55 Hydromet PO 10 ml Q6H PRN Administration Cough Hydrophilic Ointment 1 applic 02/07/19 10:00 02/07/19 12:59 Vaseline Lip Therapy TP 1 applic DIRECT PRN Administration Dry Lips Ceftriaxone Sodium 2 gm in 100 mls @ 200 mls/hr 02/04/19 18:30 02/07/19 20:39 Rocephin/Ns 2 Gm/100 Ml IV 200 mls/hr Q24H TERRY Administration Protocol Levofloxacin/Dextrose 750 mg in 150 mls @ 100 mls/hr 02/06/19 12:00 02/08/19 11:47 Levaquin 750mg/150ml IV 100 mls/hr Q24HR TERRY Administration Protocol Metronidazole 500 mg in 100 mls @ 100 mls/hr 02/06/19 14:00 02/07/19 22:54 Flagyl 500 Mg/100 Ml IV 100 mls/hr Q8HR TERRY Administration Protocol Insulin Human Regular 0 units 02/04/19 22:00 02/08/19 11:01 Humulin R SUB-Q Not Given ACHS TERRY Protocol Lorazepam 2 mg 02/06/19 16:30 Ativan PO Q1HR PRN CIWA-Ar 8-15 Ondansetron HCl 4 mg 02/04/19 17:10 Zofran IV Q8H PRN Nausea And Vomiting Potassium Chloride 40 meq 02/08/19 14:45 K-Dur PO 02/08/19 14:46 ONCE ONE Pseudoephedrine/Acetam/Chlorphenir 10 ml 02/06/19 16:30 Robitussin Ac PO Q4H PRN Cough Sodium Chloride 10 ml 02/04/19 22:00 02/08/19 11:45 Sodium Chloride Flush Syringe 10 Ml IV 10 ml BID TERRY Administration Sodium Chloride 10 ml 02/04/19 17:10 Sodium Chloride Flush Syringe 10 Ml IV PRN PRN LINE FLUSH Sodium Chloride 2 gm 02/06/19 11:00 02/08/19 11:47 Sodium Chloride PO 2 gm TID TERRY Administration
--- NOTE | 2019-02-08 14:50 | Progress Note ---
Assessment and Plan Cultures: Blood cultures 02/04/2019 neg Urine cultures 02/04/2019 10-100 multiple sp Blood cultures 02/07/2019 no growth so far. Assessment: 64 y/o female with history of Nicotine Dependence, hypertension and GERD admitted on 02/04/2019 due to a-week history of worsening shortness of breath, cough, generalized weakness, dizziness, nausea and poor appetite: 1) Severe sepsis: improving; likely due to pneumonia. Blood cultures 02/04/2019 no growth so far. UA negative. 2) RLL pneumonia: patient with recent travel to [place] stayed at a [place] hotel with 4 other family members to celebrate her birthday a week before symptoms started. Noted hyponatremia and thrombocytopenia. DDx: post- influenza pneumonia, Legionnaire disease, Mycoplasma, Chlamydia, Strep pneumoniae. Other possibilities aspiration pneumonia due to symptomatic GERD. She reports persistent right sided pleuritic pain worsening with cough and deep breath ? pleural effusion.CXR showed minimal stringy airspace disease right base. CTA showed Bilateral infiltrates concerning for pneumonia. The right middle and lower lobes are most affected. Trace right pleural effusion. Hepatic steatosis. 3) Thrombocytopenia ?unclear influenza pneumonia, Legionnaire disease, Mycoplasma, resolved 4) Hyponatremia: from pneumonia Recommendations: - continue ceftriaxone 2 gm IV qday, D5 - continue levaquin 750 mg IV q day, D3 - continue flagyl to cover aspiration pneumonia, D3 - f/u urine legionella antigen and urine strep pneumoniae antigen - ok to d/c from ID stand point on augmentin 875 mg PO BID and levaquin 750 mg PO QDAY for 7 days until 02/12/2019 - ID clinic f/u in 1-2 weeks Will follow. Briana Torres MD [facility] M [phone] O [phone] Subjective Date of service: 02/08/19 Principal diagnosis: Pneumonia Interval history: Patient feels better, no SOB, decreased cough, no fever. ROS as above rest neg Objective - Exam Narrative Exam: General appearance: Alert in mild resp distress on NC O2 Eyes: anicteric sclerae, moist conjunctivae; no lid-lag; PERRLA HENT: Atraumatic; oropharynx clear with moist mucous membranes and no mucosal ulcerations/no oral thrush; normal hard and soft palate. Normal external ears. Neck: Trachea midline; supple, no thyromegaly or lymphadenopathy Lungs: RLL crackles CV: RRR Abdomen: Soft, non-tender; no masses or hepatosplenomegaly Extremities: no edema Skin: Normal temperature, turgor and texture; no rash, ulcers or subcutaneous nodules Psych: Appropriate affect, alert and oriented to person, place and time. Neuro: alert and oriented x 3. Moving all extermities - Constitutional Vitals: Vital Signs Temp Pulse Resp BP Pulse Ox 98.3 F 85 19 158/64 97 02/08/19 12:11 02/08/19 13:34 02/08/19 13:34 02/08/19 12:11 02/08/19 12:11 Temperature -Last 24 Hours Temperature 98.3 F Temperature 98.1 F Temperature 99.2 F Temperature 98.5 F - Labs CBC & Chem 7: 02/07/19 08:16 02/08/19 12:58 Labs: Abnormal lab results 02/07/19 02/07/19 02/08/19 Range/Units 16:24 20:34 06:49 Sodium 130 L (137-145) mmol/L Potassium 3.1 L (3.6-5.0) mmol/L Chloride 92.2 L (98-107) mmol/L Carbon Dioxide (22-30) mmol/L BUN 3 L (7-17) mg/dL Creatinine 0.5 L (0.7-1.2) mg/dL Glucose 124 H (65-100) mg/dL POC Glucose 106 H 116 H (70-105) Calcium 7.8 L (8.4-10.2) mg/dL 02/08/19 02/08/19 02/08/19 Range/Units 07:53 11:54 12:58 Sodium 131 L (137-145) mmol/L Potassium 3.3 L (3.6-5.0) mmol/L Chloride 93.8 L (98-107) mmol/L Carbon Dioxide 20 L (22-30) mmol/L BUN 3 L (7-17) mg/dL Creatinine 0.5 L (0.7-1.2) mg/dL Glucose 122 H (65-100) mg/dL POC Glucose 117 H 126 H (70-105) Calcium 8.3 L (8.4-10.2) mg/dL
[2019-02-08] MEDS: FLAGYL 500 MG/100 ML 500 MG/100 ML BAG IV SCH ×3 (15:35→22:06)
--- NOTE | 2019-02-08 15:38 | Progress Note ---
Assessment and Plan - Patient Problems (1) Acute hyponatremia Current Visit: Yes Status: Acute Plan to address problem: Acute hyponatremia improving Sodium 131 urine electrolytes showed elevated urine osmolality with low urine sodium is more consistent with volume depletion Received gentle fluid hydration for a few hours However patient's history consistent with beer potomania Also has had some nausea and pulmonary process ongoing which may cause excessive antidiuretic hormone production Continue salt tablets 2 g 3 times a day Avoid excessive fluid intake We'll check sodium levels (2) Acidosis Current Visit: Yes Status: Acute Plan to address problem: Metabolic acidosis In the setting of recent acute kidney injury Received sodium bicarbonate infusion (3) Acute hypokalemia Current Visit: Yes Status: Acute Plan to address problem: Acute hypokalemia resolved resolved Has had recent nausea agree with additional potassium chloride 40meq x 2 (4) Pneumonia Current Visit: Yes Status: Acute Plan to address problem: Pneumonia Continue antibiotics (5) Alcohol abuse Current Visit: Yes Status: Acute Plan to address problem: Alcohol abuse Monitor for alcohol withdrawal Subjective Principal diagnosis: Pneumonia Interval history: 64-year-old lady with medical history significant for alcohol abuse consumes a sixpack of beer daily with minimal abdomen complains of shortness of breath fevers. Patient seems to be doing well Remains on supplemental oxygen Denies any orthopnea or PND denies any fevers or chills Improving shortness of breath Objective - Vital Signs Vital signs: Vital Signs - 12hr 02/08/19 02/08/19 02/08/19 04:56 07:48 07:49 Temperature 98.1 F Pulse Rate 88 Pulse Rate [ 79 80 Anterior Bilateral Throughout] Respiratory 24 Rate Respiratory 18 19 Rate [Anterior Bilateral Throughout] Blood Pressure 123/49 O2 Sat by Pulse 94 98 Oximetry 02/08/19 02/08/19 02/08/19 12:11 13:32 13:34 Temperature 98.3 F Pulse Rate 79 Pulse Rate [ 86 85 Anterior Bilateral Throughout] Respiratory 20 Rate Respiratory 17 19 Rate [Anterior Bilateral Throughout] Blood Pressure 158/64 O2 Sat by Pulse 97 Oximetry - General Appearance General appearance: well-developed, well-nourished EENT: ATNC, PERRL, mucous membranes moist Neck: no JVD, JVD Respiratory: Present: Clear to Ascultation, Rales Cardiology: regular, S1S2 Gastrointestinal: normal, normoactive bowel sounds Integumentary: no rash Neurologic: no focal deficit, CN 3-12 intact Psychiatric: mood/affect appropriate - Lab 02/07/19 08:16 02/08/19 12:58 Most recent lab results Calcium 8.3 mg/dL (8.4-10.2) L 02/08/19 12:58 Magnesium 1.70 mg/dL (1.7-2.3) 02/08/19 12:58 10 mmol/L 02/06/19 16:55 - Imaging Chest x-ray: image reviewed (IV chest x-ray with bilateral patchy infiltrates) Medications & Allergies - Medications Allergies/Adverse Reactions: Allergies acetaminophen [From Percocet] Allergy (Verified 02/05/19 13:43) Rash oxycodone [From Percocet] Allergy (Verified 02/05/19 13:43) Rash Home Medications: Home Medications Medication Instructions Recorded Confirmed Last Taken Type No Known Home Medications [No 02/05/19 02/05/19 Unknown History Reported Home Medications] Active Medications: Generic Name Dose Route Start Last Admin Trade Name Freq PRN Reason Stop Dose Admin Acetaminophen 650 mg 02/04/19 17:10 02/06/19 12:58 Tylenol PO 650 mg Q4H PRN Administration Pain MILD(1-3)/Fever >100.5/CHEW Albuterol 2.5 mg 02/07/19 14:00 02/08/19 13:31 Proventil IH 2.5 mg Q6HRT TERRY Administration Chlordiazepoxide HCl 50 mg 02/06/19 16:30 Librium PO Q1HR PRN CIWA-Ar 8-15 Dextrose 50 ml 02/04/19 17:12 D50w (25gm) Syringe IV PRN PRN Hypoglycemia Heparin Sodium (Porcine) 5,000 unit 02/04/19 22:00 02/08/19 11:47 Heparin SUB-Q 5,000 unit Q12HR TERRY Administration Hydrocodone Bit/Homatropine Methylb 10 ml 02/04/19 17:32 02/07/19 22:55 Hydromet PO 10 ml Q6H PRN Administration Cough Hydrophilic Ointment 1 applic 02/07/19 10:00 02/07/19 12:59 Vaseline Lip Therapy TP 1 applic DIRECT PRN Administration Dry Lips Ceftriaxone Sodium 2 gm in 100 mls @ 200 mls/hr 02/04/19 18:30 02/07/19 20:39 Rocephin/Ns 2 Gm/100 Ml IV 200 mls/hr Q24H TERRY Administration Protocol Levofloxacin/Dextrose 750 mg in 150 mls @ 100 mls/hr 02/06/19 12:00 02/08/19 11:47 Levaquin 750mg/150ml IV 100 mls/hr Q24HR TERRY Administration Protocol Metronidazole 500 mg in 100 mls @ 100 mls/hr 02/06/19 14:00 02/07/19 22:54 Flagyl 500 Mg/100 Ml IV 100 mls/hr Q8HR TERRY Administration Protocol Insulin Human Regular 0 units 02/04/19 22:00 02/08/19 11:01 Humulin R SUB-Q Not Given ACHS TERRY Protocol Lorazepam 2 mg 02/06/19 16:30 Ativan PO Q1HR PRN CIWA-Ar 8-15 Ondansetron HCl 4 mg 02/04/19 17:10 Zofran IV Q8H PRN Nausea And Vomiting Potassium Chloride 40 meq 02/08/19 16:00 K-Dur PO 02/08/19 16:01 ONCE ONE Pseudoephedrine/Acetam/Chlorphenir 10 ml 02/06/19 16:30 Robitussin Ac PO Q4H PRN Cough Sodium Chloride 10 ml 02/04/19 22:00 02/08/19 11:45 Sodium Chloride Flush Syringe 10 Ml IV 10 ml BID TERRY Administration Sodium Chloride 10 ml 02/04/19 17:10 Sodium Chloride Flush Syringe 10 Ml IV PRN PRN LINE FLUSH Sodium Chloride 2 gm 02/06/19 11:00 02/08/19 11:47 Sodium Chloride PO 2 gm TID TERRY Administration
[2019-02-08] MEDS: ROCEPHIN/NS 2 GM/100 ML 2 GM/100 ML BAG IV SCH (19:10)
[2019-02-08] MEDS ORDERED: K-DUR PO NR (19:30)
[2019-02-08] MEDS: HYDROMET PO PRN (22:06)
[2019-02-09] MEDS: HumuLIN R SUB-Q SCH ×3 (00:48→11:30)
[2019-02-09] MEDS: PROVENTIL IH SCH ×3 (02:17→14:24)
[2019-02-09] MEDS: FLAGYL 500 MG/100 ML 500 MG/100 ML BAG IV SCH ×2 (06:00→14:43)
[2019-02-09 06:52] VITALS: BP 160/84
[2019-02-09 08:59] LABS: BUN/Creatinine Ratio 8; Blood Urea Nitrogen 3 mg/dL (7-17); Calcium 7.9 mg/dL (8.4-10.2); Hemolysis Index 9
--- NOTE | 2019-02-09 09:23 | Discharge Summary ---
Providers - Providers Date of Admission: 02/04/19 17:10 Attending physician: SHELDON NICHOLS MD 02/06/19 08:40 Consult to Physician [CONS] Routine Comment: Consulting Provider: POLLY BRAY Physician Instructions: Reason For Exam: pneumonia, persistent fever Consult to Physician [CONS] Routine Comment: Consulting Provider: TITI MANZANO Physician Instructions: Reason For Exam: hyponatreamia 02/06/19 11:56 Physical Therapy Evaluation and Treat [CONS] Routine Comment: Reason For Exam: weakness 02/06/19 11:57 Occupational Therapy Evaluate and Treat [CONS] Routine Comment: Reason For Exam: weakness 02/06/19 15:30 Consult to Physician [CONS] Routine Comment: Consulting Provider: JUAN THORNTON Physician Instructions: Reason For Exam: non displaced left maleolar fracture 02/07/19 17:21 Physical Therapy Evaluation and Treat [CONS] Routine Comment: Reason For Exam: fractured left ankle Weight bearing status?: Partial wt bearing Assistive devices?: Yes If so list: Walker [facility] Reason for admission: sepsis, malleolar fracture, alcohol abuse Condition: Stable Pertinent studies: CT chest X-ray of the left foot Hospital course: 64 YO Female with HTN, Obesity, Nicotine Dependence presents to ED for evaluation. Pt states that she has experienced shortness of breath over the past 1 week, with persistent symptoms over the same time frame. Pt reports fever to 101.4, shaking chills, and productive cough with greenish sputum. EMS notified, and upon arrival the patient was found to be in distress. Pt transported to [facility]. Pt seen and evaluated in ED and found to have RLL Pneumonia complicated by SIRS, Acute renal Failure, Volume Depletion, Hyponatremia and Hypokalemia. Pt denies CP, Palpitations, NVD, Trauma, Syncope, Vertigo, Skin rash, BRBPR, Unilateral leg swelling, Calf pain, or recent ill contacts. Pt admitted to medical floor and initiated on Pneumonia protocol. Pt treated with supplemental oxygen, nebulizer therapy, and IV antibiotic therapy with improvement in symptoms. No prior admission for review. No medication listed for reconciliation at time of admission. Sepsis 2/2 Pneumonia - CT chest showed, bilateral infiltrates, right middle lobe most affected - Patient was treated with IV ceftriaxone, Flagyl and Rocephin and ID recommendation, Discharged with PO augmentin and flagyl to finish a total of 7 days. - Patient is also on Tamiflu and later d/boyd after the flu test become -ve. - Treated accordingly and improved Left ankle pain Left ankle x ray; showed non displaced fracture Orthopedics consult and recommend walking bootbruno she was given at the time of DC Alcohol abuse; - patient was put CIWA protocol but no withdrawal symptoms. - Patient drinks 6 packs every day, counseled about cessation of drinking but doesn't have any intention to quit. Patient was hemodynamically stable and discharged home. Disposition: DC-01 TO HOME OR SELFCARE Time spent for discharge: 32 minutes - Discharge Diagnoses (1) Closed left ankle fracture Status: Acute (2) Acute hypokalemia Status: Acute (3) Acute hyponatremia Status: Acute (4) Alcohol abuse Status: Acute (5) Sepsis Status: Acute Core Measure Documentation - Palliative Care Palliative Care/ Comfort Measures: Not Applicable - Core Measures Any of the following diagnoses?: none Exam - Physical Exam Narrative exam: Not in cardiopulmonary distress. The patient is obese. Vital signs as documented. Head exam is unremarkable. No scleral icterus . Neck is without jugular venous distension, thyromegaly, or carotid bruits. Lungs are clear to auscultation. Cardiac exam reveals regular rate and Rhythm. Abdominal exam reveals normal bowel sounds. Extremities are left ankle swelling. [employer]: Alert and oriented 3. No focal weakness. - Constitutional Vitals: Temp Pulse Resp BP Pulse Ox 98.1 F 85 20 160/84 93 02/09/19 05:45 02/09/19 05:45 02/09/19 05:45 02/09/19 05:45 02/09/19 05:45 Plan Activity: no restrictions Weight Bearing Status: Full Weight Bearing Diet: low cholesterol, low salt Follow up with: NEGRO MEZA MD [Primary Care Provider] - 3-5 Days Prescriptions: Amoxicillin/K Clav Tab [Augmentin 875 mg] 1 tab PO Q12HR #14 tab Folic Acid 1 tab PO QDAY #30 tab levoFLOXacin [Levaquin] 750 mg PO QDAY #7 tablet Multivitamin [Multiple Vitamins] 1 each PO DAILY #30 tablet Albuterol Sulfate [Proventil Hfa] 6.7 gm IH Q4H PRN #1 can PRN Reason: Shortness Of Breath guaiFENesin/CODEINE [Robitussin AC] 10 ml PO Q4H PRN #1 bottle PRN Reason: Cough Thiamine [Vitamin B-1] 100 mg PO QDAY #30 tablet
[2019-02-09] MEDS ORDERED: K-DUR PO ONE (10:00)
[2019-02-09] MEDS: LEVAQUIN 750MG/150ML 750 MG/150 ML BAG IV SCH (10:33)
[2019-02-09] MEDS: HEPARIN SUB-Q SCH (10:34)
[2019-02-09] MEDS: SODIUM CHLORIDE FLUSH SYRINGE 10 ML IV SCH (10:35)
[2019-02-09] MEDS: SODIUM CHLORIDE PO SCH ×2 (10:35→14:43)
--- NOTE | 2019-02-09 11:27 | Progress Note ---
Assessment and Plan Cultures: Blood cultures 02/04/2019 neg Urine cultures 02/04/2019 10-100 multiple sp Blood cultures 02/07/2019 no growth so far. Assessment: 64 y/o female with history of Nicotine Dependence, hypertension and GERD admitted on 02/04/2019 due to a-week history of worsening shortness of breath, cough, generalized weakness, dizziness, nausea and poor appetite: 1) Severe sepsis: fever and leukocytosis resolved; likely due to pneumonia. Blood cultures 02/04/2019 no growth so far. UA negative. 2) RLL pneumonia: patient with recent travel to [place] stayed at a [employer] hotel with 4 other family members to celebrate her birthday a week before symptoms started. Noted hyponatremia and thrombocytopenia. DDx: post- influenza pneumonia, Legionnaire disease, Mycoplasma, Chlamydia, Strep pneumon iae. Other possibilities aspiration pneumonia due to symptomatic GERD. She reports persistent right sided pleuritic pain worsening with cough and deep breath ? pleural effusion.CXR showed minimal stringy airspace disease right base. CTA showed Bilateral infiltrates concerning for pneumonia. The right middle and lower lobes are most affected. Trace right pleural effusion. Hepatic steatosis. 3) Thrombocytopenia ?unclear influenza pneumonia, Legionnaire disease, Mycoplasma, resolved 4) Hyponatremia: improving; from pneumonia Recommendations: - continue ceftriaxone 2 gm IV qday, D6 - continue levaquin 750 mg IV q day, D4 - continue flagyl to cover aspiration pneumonia, D4 - f/u urine legionella antigen and urine strep pneumoniae antigen - ok to d/c from ID stand point on augmentin 875 mg PO BID and levaquin 750 mg PO QDAY for 7 days until 02/12/2019 - ID clinic f/u in 1-2 weeks Will sign off Briana Torres MD Infectious Diseases Desk Monitor [facility] M [phone] O [phone] Subjective Date of service: 02/09/19 Principal diagnosis: Pneumonia Interval history: Patient feels better, wants to go home, no SOB, decreased cough, no fever. ROS as above rest neg Objective - Exam Narrative Exam: General appearance: Alert in NAD pleasant Eyes: anicteric sclerae, moist conjunctivae; no lid-lag; PERRLA HENT: Atraumatic; oropharynx clear with moist mucous membranes and no mucosal ulcerations/no oral thrush; normal hard and soft palate. Normal external ears. Neck: Trachea midline; supple, no thyromegaly or lymphadenopathy Lungs: RLL crackles CV: RRR Abdomen: Soft, non-tender; no masses or hepatosplenomegaly Extremities: no edema Skin: Normal temperature, turgor and texture; no rash, ulcers or subcutaneous nodules Psych: Appropriate affect, alert and oriented to person, place and time. Neuro: alert and oriented x 3. Moving all extermities - Constitutional Vitals: Vital Signs Temp Pulse Resp BP Pulse Ox 98.1 F 85 20 160/84 93 02/09/19 05:45 02/09/19 05:45 02/09/19 05:45 02/09/19 05:45 02/09/19 05:45 Temperature -Last 24 Hours Temperature 98.1 F Temperature 98.8 F Temperature 98.4 F Temperature 98.3 F - Labs CBC & Chem 7: 02/07/19 08:16 02/09/19 Unknown Labs: Abnormal lab results 02/08/19 02/08/19 02/09/19 Range/Units 11:54 12:58 Unknown Sodium 131 L 133 L (137-145) mmol/L Potassium 3.3 L (3.6-5.0) mmol/L Chloride 93.8 L (98-107) mmol/L Carbon Dioxide 20 L (22-30) mmol/L BUN 3 L 3 L (7-17) mg/dL Creatinine 0.5 L 0.4 L (0.7-1.2) mg/dL Glucose 122 H 114 H (65-100) mg/dL POC Glucose 126 H (70-105) Calcium 8.3 L 7.9 L (8.4-10.2) mg/dL
--- NOTE | 2019-02-09 12:50 | Progress Note ---
Assessment and Plan - Patient Problems (1) Acute hyponatremia Current Visit: Yes Status: Acute Plan to address problem: Acute hyponatremia improving Sodium 131 urine electrolytes showed elevated urine osmolality with low urine sodium is more consistent with volume depletion Received gentle fluid hydration for a few hours However patient's history consistent with beer potomania Also has had some nausea and pulmonary process ongoing which may cause excessive antidiuretic hormone production Continue salt tablets 2 g 3 times a day Avoid excessive fluid intake We'll check sodium levels (2) Acidosis Current Visit: Yes Status: Acute Plan to address problem: Metabolic acidosis In the setting of recent acute kidney injury Received sodium bicarbonate infusion (3) Acute hypokalemia Current Visit: Yes Status: Acute Plan to address problem: Acute hypokalemia resolved resolved Has had recent nausea agree with additional potassium chloride 40meq x 2 (4) Pneumonia Current Visit: Yes Status: Acute Plan to address problem: Pneumonia Continue antibiotics (5) Alcohol abuse Current Visit: Yes Status: Acute Plan to address problem: Alcohol abuse Monitor for alcohol withdrawal Subjective Principal diagnosis: Pneumonia Interval history: 64-year-old lady with medical history significant for alcohol abuse consumes a sixpack of beer daily with minimal abdomen complains of shortness of breath fevers. Patient seems to be doing well breathing much improved. Denies any orthopnea or PND denies any fevers or chills Objective - Vital Signs Vital signs: Vital Signs - 12hr 02/09/19 02/09/19 02/09/19 02:18 02:24 05:45 Temperature 98.1 F Pulse Rate 85 Pulse Rate [ 82 84 Anterior Bilateral Throughout] Respiratory 20 Rate Respiratory 18 18 Rate [Anterior Bilateral Throughout] Blood Pressure 160/84 O2 Sat by Pulse 93 Oximetry - General Appearance General appearance: well-developed, well-nourished EENT: ATNC, PERRL, mucous membranes moist Neck: no JVD Respiratory: Present: Decreased Breath Sounds Cardiology: regular, S1S2 Gastrointestinal: normal, normoactive bowel sounds Integumentary: no rash Neurologic: alert and oriented x3, CN 3-12 intact Psychiatric: mood/affect appropriate - Lab 02/07/19 08:16 02/09/19 Unknown Most recent lab results Calcium 7.9 mg/dL (8.4-10.2) L 02/09/19 Unknown Magnesium 1.70 mg/dL (1.7-2.3) 02/08/19 12:58 10 mmol/L 02/06/19 16:55 - Imaging Chest x-ray: image reviewed (reviewed Chest x ray with patchy opacities right base. ) Medications & Allergies - Medications Allergies/Adverse Reactions: Allergies acetaminophen [From Percocet] Allergy (Verified 02/05/19 13:43) Rash oxycodone [From Percocet] Allergy (Verified 02/05/19 13:43) Rash Home Medications: Home Medications Medication Instructions Recorded Confirmed Last Taken Type Albuterol Sulfate [Proventil Hfa] 6.7 gm IH Q4H PRN #1 can 02/09/19 Unknown Rx Amoxicillin/K Clav Tab [Augmentin 1 tab PO Q12HR #14 tab 02/09/19 Unknown Rx 875 mg] Folic Acid 1 tab PO QDAY #30 tab 02/09/19 Unknown Rx Multivitamin [Multiple Vitamins] 1 each PO DAILY #30 tablet 02/09/19 Unknown Rx Thiamine [Vitamin B-1] 100 mg PO QDAY #30 tablet 02/09/19 Unknown Rx guaiFENesin/CODEINE [Robitussin AC] 10 ml PO Q4H PRN #1 bottle 02/09/19 Unknown Rx levoFLOXacin [Levaquin] 750 mg PO QDAY #7 tablet 02/09/19 Unknown Rx Active Medications: Generic Name Dose Route Start Last Admin Trade Name Freq PRN Reason Stop Dose Admin Acetaminophen 650 mg 02/04/19 17:10 02/06/19 12:58 Tylenol PO 650 mg Q4H PRN Administration Pain MILD(1-3)/Fever >100.5/CHEW Albuterol 2.5 mg 02/07/19 14:00 02/09/19 08:59 Proventil IH 2.5 mg Q6HRT TERRY Administration Chlordiazepoxide HCl 50 mg 02/06/19 16:30 Librium PO Q1HR PRN CIWA-Ar 8-15 Dextrose 50 ml 02/04/19 17:12 D50w (25gm) Syringe IV PRN PRN Hypoglycemia Heparin Sodium (Porcine) 5,000 unit 02/04/19 22:00 02/09/19 10:34 Heparin SUB-Q 5,000 unit Q12HR TERRY Administration Hydrocodone Bit/Homatropine Methylb 10 ml 02/04/19 17:32 02/08/19 22:06 Hydromet PO 10 ml Q6H PRN Administration Cough Hydrophilic Ointment 1 applic 02/07/19 10:00 02/07/19 12:59 Vaseline Lip Therapy TP 1 applic DIRECT PRN Administration Dry Lips Ceftriaxone Sodium 2 gm in 100 mls @ 200 mls/hr 02/04/19 18:30 02/08/19 19:10 Rocephin/Ns 2 Gm/100 Ml IV 200 mls/hr Q24H TERRY Administration Protocol Levofloxacin/Dextrose 750 mg in 150 mls @ 100 mls/hr 02/06/19 12:00 02/09/19 10:33 Levaquin 750mg/150ml IV 100 mls/hr Q24HR TERRY Administration Protocol Metronidazole 500 mg in 100 mls @ 100 mls/hr 02/06/19 14:00 02/08/19 22:06 Flagyl 500 Mg/100 Ml IV 100 mls/hr Q8HR TERRY Administration Protocol Insulin Human Regular 0 units 02/04/19 22:00 02/09/19 07:30 Humulin R SUB-Q Not Given ACHS TERRY Protocol Lorazepam 2 mg 02/06/19 16:30 Ativan PO Q1HR PRN CIWA-Ar 8-15 Ondansetron HCl 4 mg 02/04/19 17:10 Zofran IV Q8H PRN Nausea And Vomiting Pseudoephedrine/Acetam/Chlorphenir 10 ml 02/06/19 16:30 Robitussin Ac PO Q4H PRN Cough Sodium Chloride 10 ml 02/04/19 22:00 02/09/19 10:35 Sodium Chloride Flush Syringe 10 Ml IV 10 ml BID TERRY Administration Sodium Chloride 10 ml 02/04/19 17:10 Sodium Chloride Flush Syringe 10 Ml IV PRN PRN LINE FLUSH Sodium Chloride 2 gm 02/06/19 11:00 02/09/19 10:35 Sodium Chloride PO 2 gm TID TERRY Administration
== END 2019-02-09 16:23 | disposition home or self-care (01) | DRG 871 ==
LOC: ED 15:31 → 3A 17:10
PROVIDERS: ADMIT Internal Medicine; ATTEND Internal Medicine
DX: A41.9 Sepsis, unspecified organism (principal); N17.0 Acute kidney failure with tubular necrosis; J18.1 Lobar pneumonia, unspecified organism; E87.1 Hypo-osmolality and hyponatremia; Z68.42 Body mass index [BMI] 45.0-49.9, adult; E87.6 Hypokalemia; F10.10 Alcohol abuse, uncomplicated; E66.9 Obesity, unspecified; R65.20 Severe sepsis without septic shock; S82.892A Other fracture of left lower leg, initial encounter for closed fracture; F17.200 Nicotine dependence, unspecified, uncomplicated; Z88.5 Allergy status to narcotic agent; Y93.89 Activity, other specified; Y92.89 Other specified places as the place of occurrence of the external cause; Y99.8 Other external cause status
CPT/HCPCS: 36415; 71045; 71260; 80048; 80053; 81001; 82140; 82805; 82962; 83735; 83935; 84133; 84300; 85007; 85025; 85610; 86140; 87040; 87086; 87400; 87449; 93005; 93010; 94640; 94760; 96365; 96367; G0378; 87502; J0456; J0696; J1644; J1956; J2543; J3480; J7030; J7040; J7050; J7070; Q9967